=== PATIENT | female | born 1960 | race Caucasian/White ===

== ENCOUNTER → 2016-10-27 | Outpatient (CLI) | payer MEDICARE, BC ==
[2016-10-27 12:36] LABS: HCT 42.1 % (34.0-46.0); HGB 13.5 gm/dL (11.4-16.0); MCH 28.2 pg (25.0-35.0); MCHC 32.1 g/dL (31.0-37.0); MCV 87.9 fL (80.0-100.0); Mean Platelet Volume 6.8; RBC 4.79 m/uL (3.80-5.40); WBC 8.3 k/uL (3.8-10.6)
[2016-10-27 13:12] LABS: ALT 17 U/L (9-52); AST 19 U/L (14-36); Alkaline Phosphatase 72 U/L (38-126); Anion Gap 9 mmol/L; Blood Urea Nitrogen 11 mg/dL (7-17); Calcium 9.2 mg/dL (8.4-10.2); Carbon Dioxide 28 mmol/L (22-30); Chloride 104 mmol/L (98-107); Glucose 95 mg/dL (74-99); Non-African American GFR(MDRD) >60 (>60 ml/min/1.73 sqM); Potassium 4.1 mmol/L (3.5-5.1); Sodium 141 mmol/L (137-145); Total Bilirubin 0.5 mg/dL (0.2-1.3); Total Protein 6.9 g/dL (6.3-8.2)
[2016-10-27 15:17] LABS: Erythrocyte Sedimentation Rate 1 mm/hr (0-20)
== END | disposition home or self-care (01) ==
LOC: LABWHC1 11:56
PROVIDERS: ATTEND Internal Medicine Gastroenterology
DX: R53.83 Other fatigue (principal); R63.4 Abnormal weight loss
CPT/HCPCS: 36415; 80053; 84443; 85027; 85652

== ENCOUNTER → 2016-12-28 | Outpatient (CLI) | payer BC, MEDICARE ==
--- NOTE | 2016-12-29 09:41 | WWHP ---
DATE OF SERVICE: 12/28/16 CHIEF COMPLAINT: The patient is here for her routine gynecological exam. HISTORY OF PRESENT ILLNESS: This is a 56-year-old G0, with an LMP of 1989. She is status post ERVIN for invasive cervical cancer in 1989. She also underwent radiation and chemotherapy. She states it has been more than three years since her last pelvic exam and more than three years since her last mammogram as well. The patient is not sexually active. The patient is without gynecological complaints. PAST MEDICAL HISTORY: Small intestine bacterial overgrowth, chronic regional pain syndrome, previously known as reflux sympathetic dystrophy, osteopenia, status post two years of Prolia use, possible seasonal allergies and obstructive bowel disease. Medications: 1. Gabapentin 3 mg t.i.d. 2. Ibuprofen 400 mg daily. 3. Hydromorphone 4 mg q.i.d. prn 4. Zofran one q.i.d. prn 5. Brevio inhaler two puffs prn. 6. Dicyclomine prn. 7. Diazepam 10 mg b.i.d. prn. ALLERGIES: ERYTHROMYCIN WHICH CAUSED DIGESTIVE PROBLEMS AND NITROGLYCERINE WHICH CAUSED A RAPID HEART RATE. PAST SURGICAL: Cholecystectomy in 2004. Multiple shoulder surgeries between 2007 and 2009. Total abdominal hysterectomy in 1989. Feeding tube placement in 2014. 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 She has no other history of STDs. FAMILY HISTORIES: Father had [place]. Her grandparents also had heart disease. Maternal grandmother had breast cancer and mother had melanoma. SOCIAL HISTORY: She quit smoking at age 23. She denies tobacco and drug use. She is single and is not seeing anybody and is not sexually active. She is currently not working outside the home. REVIEW OF SYSTEMS: She lost about 70 pounds in 2014 when she was initially having her GI problems. She has gained about some weight back and it has been more stable. Now her weight can fluctuate by +/- ten pounds. Respiratory: Occasional allergy type symptoms. Cardiac: Occasional palpitations which has been worked up. GI: She has had some chronic constipation and chronic digestive tract problems as above. PHYSICAL EXAM: Blood pressure 111/74. Height 5 feet 4 inches, weight 128 pounds. Temperature 96.5. Pulse 64. This is a well developed, well nourished white female who is alert and oriented times three in no acute distress. HEENT : is within normal limits. Neck is supple without mass or thyromegaly. Chest and lungs clear to auscultation. Heart is regular rate and rhythm. Breasts without mass or discharge. Axillary exam is negative for adenopathy. Back negative for CVA tenderness. Abdomen is soft and nondistended but there is mild generalized tenderness throughout the abdomen. She states it has been this way since she has been having her GI problems. There is no rebound tenderness. There are no palpable abdominal masses. Pelvic exam, external genitalia reveals moderate atrophy without lesions. Vagina reveals moderate to severe atrophy without lesions. There is no evidence of prolapse. The vagina is somewhat narrowed and slightly shortened. The small Petersons speculum could be inserted with some discomfort and could only be opened minimally because of the severe atrophy. Bimanual exam is negative for mass. There is mild generalized tenderness upon doing the bimanual examination similar to that noted with her abdominal examination. Rectal exam is negative for mass or tenderness. Negative for occult blood. Extremities nontender. IMPRESSION: 1. A 56 year old menopausal female status post ERVIN in 1989 for invasive cervical cancer and she is status post radiation and chemotherapy at that time. 2. Moderate to severe genital atrophy secondary to menopause as well as radiation changes from her cervical cancer treatment. 3. Multiple medical problems including gastrointestinal problems. PLAN: 1. Pap smear of the vaginal cuff was performed. This may be somewhat limited because of the difficulty opening the speculum secondary to atrophy. 2. Self breast examination was discussed. 3. Mammogram will be done today. 4. The patient is interested in using Premarin vaginal cream for the atrophy. She does not believe she will be immediately sexually active. However, I do feel this may be helpful for future examinations since it was difficult inserting and opening the speculum. She will use Premarin vaginal cream 1 to 2 gm intravaginally two times weekly. 5. She will return in one year. HEAVEN
--- NOTE | 2016-12-29 09:52 | MM ---
Reason for exam: screening (asymptomatic). Last mammogram was performed 2 years and 3 months ago. History: Patient is postmenopausal, has history of other cancer at age 30, and is nulliparous. Family history of breast cancer in maternal grandmother at age 50. Took estrogen beginning at age 30. Physical Findings: A clinical breast exam by your physician is recommended on an annual basis and results should be correlated with mammographic findings. MG 3D Screening Mammo W/Cad Bilateral CC and MLO view(s) were taken. Prior study comparison: September 24, 2014, bilateral MG screening mammo w CAD. The breast tissue is heterogeneously dense. This may lower the sensitivity of mammography. There is no discrete abnormality. ASSESSMENT: Negative, BI-RAD 1 RECOMMENDATION: Routine screening mammogram of both breasts in 1 year.
== END | disposition home or self-care (01) ==
LOC: WWCWWP 10:20
PROVIDERS: ATTEND Obstetrics & Gynecology
DX: Z12.31 Encounter for screening mammogram for malignant neoplasm of breast (principal)
CPT/HCPCS: 77063; G0202

== ENCOUNTER → 2017-01-09 | Outpatient (CLI) | payer MEDICARE ==
[2017-01-09 09:58] LABS: Basophils # (A) 0.1 k/uL (0-0.2); Basophils % (A) 1 %; CH 28.9; CHCM 32.7; Eosinophils # (A) 0.3 k/uL (0-0.7); Eosinophils % (A) 4 %; HCT 39.5 % (34.0-46.0); HDW 2.38; HGB 12.6 gm/dL (11.4-16.0); Luc # (Auto) 0.15; Luc % (Auto) 2; Lymphocytes # (A) 1.6 k/uL (1.0-4.8); Lymphocytes % (A) 25 %; MCH 28.5 pg (25.0-35.0); MCV 88.9 fL (80.0-100.0); Mean Platelet Volume 7.7; Monocytes # (A) 0.4 k/uL (0-1.0); Monocytes % (A) 6 %; Neutrophils # (A) 3.9 k/uL (1.3-7.7); Neutrophils % (A) 62 %; RBC 4.44 m/uL (3.80-5.40); RDW 14.1 % (11.5-15.5); WBC 6.4 k/uL (3.8-10.6); WBC (Perox) 6.67
[2017-01-09 10:25] LABS: ALT 28 U/L (9-52); AST 18 U/L (14-36); Alkaline Phosphatase 65 U/L (38-126); Amylase 92 U/L (30-110); Anion Gap 10 mmol/L; Blood Urea Nitrogen 12 mg/dL (7-17); Calcium 9.3 mg/dL (8.4-10.2); Carbon Dioxide 28 mmol/L (22-30); Chloride 104 mmol/L (98-107); Cholesterol 207 mg/dL (<200); Creatine Kinase 197 U/L (30-135); Glucose 89 mg/dL (74-99); HDL Cholesterol 72 mg/dL (40-60); Non-African American GFR(MDRD) >60 (>60 ml/min/1.73 sqM); Potassium 4.6 mmol/L (3.5-5.1); Sodium 142 mmol/L (137-145); Total Bilirubin 0.3 mg/dL (0.2-1.3); Total Protein 6.3 g/dL (6.3-8.2); Triglycerides 64 mg/dL (<150)
[2017-01-09 11:28] LABS: Vitamin B12 449 pg/mL (239-931)
[2017-01-09 12:03] LABS: Erythrocyte Sedimentation Rate 4 mm/hr (0-20)
[2017-01-09 17:53] LABS: ANA w/Reflex to Titer NEGATIVE (NEGATIVE)
[2017-01-10 10:19] LABS: Lyme IgG/IgM Interp NEGATIVE (NEGATIVE)
== END | disposition home or self-care (01) ==
LOC: LABWHC1 09:20
PROVIDERS: ATTEND Family Medicine
DX: R20.2 Paresthesia of skin (principal); R10.9 Unspecified abdominal pain; K90.9 Intestinal malabsorption, unspecified; E78.5 Hyperlipidemia, unspecified; E53.8 Deficiency of other specified B group vitamins
CPT/HCPCS: 36415; 80053; 80061; 82150; 82306; 82550; 82607; 82728; 82746; 83690; 84425; 85025; 85652; 86038; 86618

== ENCOUNTER → 2017-01-10 | Outpatient (CLI) | payer MEDICARE ==
--- NOTE | 2017-01-10 14:04 | US ---
EXAMINATION TYPE: US carotid duplex BILAT DATE OF EXAM: 01/10/2017 COMPARISON: NONE CLINICAL HISTORY: R20.2 Paresthesia of skin. numbness and tingling left side arm and face. EXAM MEASUREMENTS: RIGHT: Peak Systolic Velocity (PSV) cm/sec ----- Right CCA: 89.7 ----- Right ICA: 75.4 ----- Right ECA: 77.6 ICA/CCA ratio: 0.8 RIGHT: End Diastole cm/sec ----- Right CCA: 29.2 ----- Right ICA: 34.7 ----- Right ECA: 14.9 LEFT: Peak Systolic Velocity (PSV) cm/sec ----- Left CCA: 94.7 ----- Left ICA: 88.1 ----- Left ECA: 89.4 ICA/CCA ratio: 0.9 LEFT: End Diastole cm/sec ----- Left CCA: 31.2 ----- Left ICA: 32.5 ----- Left ECA: 16.7 VERTEBRALS (direction of flow): Right Vertebral: Antegrade Left Vertebral: Antegrade No significant stenosis seen, no elevated velocities, plaque noted left bulb. Grayscale images show no significant focal plaque at right carotid bulb. There is moderate eccentric shadowing plaque at left carotid bulb. Velocity measurements and ratios remain within normal limits i n visualized portion of both internal carotid arteries. IMPRESSION: Moderate atherosclerotic change left carotid bulb without hemodynamically significant st enosis seen in either internal carotid artery.
== END | disposition home or self-care (01) ==
LOC: RADUSWWP 12:06
PROVIDERS: ATTEND Family Medicine
DX: I65.22 Occlusion and stenosis of left carotid artery (principal); R20.2 Paresthesia of skin
CPT/HCPCS: 93880

== ENCOUNTER → 2017-03-15 | Outpatient (CLI) | payer MEDICARE ==
--- NOTE | 2017-03-15 08:54 | US ---
EXAMINATION TYPE: US pelvic complete DATE OF EXAM: 03/15/2017 COMPARISON: CT 2014 CLINICAL HISTORY: 56-year-old female R10.9 Abdominal Pain. Hysterectomy 1989 TECHNIQUE: Multiple transabdominal sonographic images of the pelvis are obtained. FINDINGS: Date of LMP: 1989 Uterus: Surgically absent Right Ovary: 1.4 x 1.0 x 0.9 cm for volume of 0.6 mL. Left Ovary: 2.0 x 1.4 x 1.6 cm for a volume of 2.3 mL. No evident adnexal abnormality or cul-de-sac free fluid. IMPRESSION: Status post hysterectomy. Both ovaries are small consistent with postmenopausal status. No pelvic parul e fluid.
--- NOTE | 2017-03-15 08:57 | US ---
EXAMINATION TYPE: US abdomen complete DATE OF EXAM: 03/15/2017 COMPARISON: None CLINICAL HISTORY: 56-year-old female R10.9 Abdominal Pain. Cholecystectomy. FINDINGS: CANVAS BASTER NOTES: Difficult exam due to overlying bowel gas and patient pain Liver Length: 18.0 cm CBD: 1.0 cm Spleen: 9.4 cm Right Kidney: 9.9 x 3.5 x 4.0 cm Left Kidney: 9.7 x 4.7 x 4.8 cm Pancreas: Tail obscured by overlying bowel gas Liver: Mildly enlarged but with overall normal homogeneous echotexture. No focal lesion seen. Gallbladder: Surgically absent CBD: Dilated Spleen: wnl Right Kidney: No hydronephrosis. Left Kidney: No hydronephrosis; difficult visualization due to overlying bowel gas Upper IVC: wnl Abd Aorta: Some atherosclerotic changes noted in mid portion, otherwise wnl IMPRESSION: 1. Mild hepatomegaly. 2. Status post cholecystectomy. Dilatation of the bile duct at 1 cm may be secondary to postcholecyst ectomy status. Correlate with alkaline phosphatase and bilirubin levels to exclude biliary obstructio n.
== END | disposition home or self-care (01) ==
LOC: RADUSWWP 07:48
PROVIDERS: ATTEND Family Medicine
DX: R16.0 Hepatomegaly, not elsewhere classified (principal); K83.8 Other specified diseases of biliary tract; Z90.49 Acquired absence of other specified parts of digestive tract; Z90.710 Acquired absence of both cervix and uterus
CPT/HCPCS: 76700; 76856

== ENCOUNTER → 2017-06-13 | Outpatient (CLI) | payer MEDICARE, OTHER ==
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
== END | disposition home or self-care (01) ==
LOC: RADMRIMAIN 15:11
PROVIDERS: ATTEND Family Medicine
DX: R20.0 Anesthesia of skin (principal)
CPT/HCPCS: 70551

== ENCOUNTER → 2017-07-07 | Outpatient (CLI) | payer OTHER, MEDICARE ==
--- NOTE | 2017-07-07 09:41 | MR ---
EXAMINATION TYPE: MR lumbar spine wo/w con DATE OF EXAM: 07/07/2017 COMPARISON: Prior lumbar MRI 07/05/2013 CT abdomen pelvis 10/11/2017 HISTORY: Spondylosis with myelopathy, lumbar region TECHNIQUE: Multiplanar, multisequence images of the lumbar spine were acquired utilizing [address] gadolinium contrast. L1-L2: Normal disc appearance without desiccation. No herniation, protrusion or disc bulging. No ca nal stenosis is present. Foramina are patent bilaterally. L2-L3: Normal disc appearance without desiccation. No herniation, protrusion or disc bulging. No ca nal stenosis is present. Schmorl's node present at the superior endplate of L3. Foramina are patent b ilaterally. L3-L4: Normal disc appearance without desiccation. No herniation, protrusion or disc bulging. No ca nal stenosis is present. Foramina are patent bilaterally. L4-L5: Normal disc appearance without desiccation. No herniation, protrusion or disc bulging. No ca nal stenosis is present. Facet arthropathy changes with hypertrophy of the ligamentum flavum encroach es mildly on the lateral recesses as on prior Foramina are patent bilaterally. L5-S1: Normal disc appearance without desiccation. No herniation, protrusion or disc bulging. No ca nal stenosis is present. Mild facet arthropathy changes are present Foramina are patent bilaterally. Lumbar segments are intact. No paraspinal masses are identified. Conus medullaris has a normal appe arance. There is multilevel spondylosis. Normal endplate discogenic marrow signal changes are again n oted. Loss of disc height and signal is greatest at L2-3, L1-2 similar to prior exam. Prominence of t he common bile duct is again noted incidentally. This is likely due to postcholecystectomy change and is stable. There is mild spinal curvature. No abnormal enhancement following contrast administration . IMPRESSION: Stable exam. Mild facet arthropathy change. Additional findings above.
== END | disposition home or self-care (01) ==
LOC: RADMRIMAIN 07:52
PROVIDERS: ATTEND Family Medicine
DX: M47.16 Other spondylosis with myelopathy, lumbar region (principal); M46.97 Unspecified inflammatory spondylopathy, lumbosacral region
CPT/HCPCS: 72158; A9581

== ENCOUNTER → 2017-07-31 | Outpatient (CLI) | payer MEDICARE ==
[2017-07-31 11:02] LABS: Basophils # (A) 0.1 k/uL (0-0.2); Basophils % (A) 1 %; Eosinophils # (A) 0.3 k/uL (0-0.7); Eosinophils % (A) 4 %; HCT 39.2 % (34.0-46.0); HGB 12.3 gm/dL (11.4-16.0); Lymphocytes # (A) 1.9 k/uL (1.0-4.8); Lymphocytes % (A) 27 %; MCHC 31.5 g/dL (31.0-37.0); Mean Platelet Volume 6.7; Monocytes # (A) 0.5 k/uL (0-1.0); Monocytes % (A) 7 %; Neutrophils # (A) 4.1 k/uL (1.3-7.7); Neutrophils % (A) 59 %; Platelet Count 281 k/uL (150-450); RDW 12.6 % (11.5-15.5)
[2017-07-31 11:18] LABS: ALT 15 U/L (9-52); AST 17 U/L (14-36); Albumin 4.2 g/dL (3.5-5.0); Alkaline Phosphatase 67 U/L (38-126); Anion Gap 7 mmol/L; Blood Urea Nitrogen 19 mg/dL (7-17); Calcium 9.5 mg/dL (8.4-10.2); Carbon Dioxide 32 mmol/L (22-30); Chloride 101 mmol/L (98-107); Glucose 95 mg/dL (74-99); Potassium 4.3 mmol/L (3.5-5.1); Sodium 140 mmol/L (137-145); Total Bilirubin 0.3 mg/dL (0.2-1.3); Total Protein 6.8 g/dL (6.3-8.2)
== END | disposition home or self-care (01) ==
LOC: LABWHC1 10:20
PROVIDERS: ATTEND Internal Medicine Gastroenterology
DX: R53.83 Other fatigue (principal)
CPT/HCPCS: 36415; 80053; 85025

== ENCOUNTER → 2017-12-28 | Outpatient (CLI) | payer MEDICARE ==
[2017-12-28 10:55] LABS: Basophils # (A) 0.1 k/uL (0-0.2); Basophils % (A) 1 %; Eosinophils # (A) 0.2 k/uL (0-0.7); Eosinophils % (A) 2 %; HGB 12.7 gm/dL (11.4-16.0); Lymphocytes # (A) 1.8 k/uL (1.0-4.8); Lymphocytes % (A) 22 %; MCH 28.4 pg (25.0-35.0); MCHC 32.6 g/dL (31.0-37.0); MCV 87.2 fL (80.0-100.0); Mean Platelet Volume 6.7; Monocytes # (A) 0.5 k/uL (0-1.0); Monocytes % (A) 6 %; Neutrophils # (A) 5.3 k/uL (1.3-7.7); Neutrophils % (A) 66 %; Platelet Count 251 k/uL (150-450); RBC 4.47 m/uL (3.80-5.40); RDW 13.5 % (11.5-15.5)
[2017-12-28 10:57] LABS: INR 1.1 (<1.2); Prothrombin Time 10.7 sec (9.0-12.0)
[2017-12-28 18:48] LABS: Iron Saturation 19.64 (12.00-45.00)
== END | disposition home or self-care (01) ==
LOC: LABWHC1 10:31
PROVIDERS: ATTEND Physician Assistant
DX: R58 Hemorrhage, not elsewhere classified (principal)
CPT/HCPCS: 36415; 82728; 83540; 83550; 85025; 85610

== ENCOUNTER 2018-11-12 22:22 | Emergency (ER) | payer MEDICARE ==
[2018-11-12 22:30] VITALS: RESP 18
[2018-11-12 23:07] LABS: Basophils # (A) 0.1 k/uL (0-0.2); Basophils % (A) 1 %; Eosinophils # (A) 0.2 k/uL (0-0.7); Eosinophils % (A) 4 %; HGB 11.7 gm/dL (11.4-16.0); Lymphocytes # (A) 2.6 k/uL (1.0-4.8); Lymphocytes % (A) 39 %; MCH 28.2 pg (25.0-35.0); MCHC 33.3 g/dL (31.0-37.0); MCV 84.6 fL (80.0-100.0); Mean Platelet Volume 7.2; Monocytes # (A) 0.4 k/uL (0-1.0); Monocytes % (A) 6 %; Neutrophils # (A) 3.2 k/uL (1.3-7.7); Neutrophils % (A) 48 %; Platelet Count 243 k/uL (150-450); RBC 4.14 m/uL (3.80-5.40); RDW 13.9 % (11.5-15.5); WBC 6.7 k/uL (3.8-10.6)
[2018-11-12 23:17] LABS: INR 1.1 (<1.2); Partial Thromboplastin Time 23.8 sec (22.0-30.0); Prothrombin Time 11.7 sec (9.0-12.0)
[2018-11-12 23:23] LABS: Calcium 9.3 mg/dL (8.4-10.2); Magnesium 2.2 mg/dL (1.6-2.3); Potassium 3.9 mmol/L (3.5-5.1); Total Bilirubin 0.4 mg/dL (0.2-1.3); Total Protein 6.2 g/dL (6.3-8.2)
--- NOTE | 2018-11-12 23:23 | XR ---
EXAM: XR Left Ankle Complete, 3 or More Views CLINICAL HISTORY: Pain TECHNIQUE: Frontal, lateral and oblique views of the left ankle. COMPARISON: No relevant prior studies available. FINDINGS: Bones/joints: No acute fracture or malalignment. Plantar calcaneal osteophyte. Soft tissues: Unremarkable. IMPRESSION: No acute osseous abnormality.
--- NOTE | 2018-11-12 23:24 | XR ---
EXAM: XR Chest, 2 Views CLINICAL HISTORY: Chest Pain TECHNIQUE: Frontal and lateral views of the chest. COMPARISON: No relevant prior studies available. FINDINGS: Lungs: Unremarkable. No consolidation. Pleural space: Unremarkable. No pneumothorax. Heart: Unremarkable. No cardiomegaly. Mediastinum: Unremarkable. Bones/joints: No acute osseous abnormality. IMPRESSION: No acute cardiopulmonary process.
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
[2018-11-13 03:34] VITALS: BP 106/72; PULSE 78; TEMP 98.3
== END 2018-11-13 03:34 | disposition home or self-care (01) ==
LOC: EC 22:22 → SUPCPDRO 22:22 → EC 11-13 03:34
DX: R07.9 Chest pain, unspecified (principal); R21 Rash and other nonspecific skin eruption; M25.572 Pain in left ankle and joints of left foot; I10 Essential (primary) hypertension; F17.200 Nicotine dependence, unspecified, uncomplicated; Z88.1 Allergy status to other antibiotic agents; Z88.8 Allergy status to other drugs, medicaments and biological substances; Z91.013 Allergy to seafood; Z79.899 Other long term (current) drug therapy; Z85.42 Personal history of malignant neoplasm of other parts of uterus; Z90.710 Acquired absence of both cervix and uterus
CPT/HCPCS: 36415; 71046; 80053; 83735; 84484; 85025; 85610; 85730; 93005; 99285

== ENCOUNTER → 2018-12-19 | Outpatient (CLI) | payer MEDICARE | END | disposition home or self-care (01) | LOC: LABWHC1 12:00 | PROVIDERS: ATTEND Internal Medicine Infectious Disease | DX: R23.3 Spontaneous ecchymoses (principal); R21 Rash and other nonspecific skin eruption | CPT/HCPCS: 87328; 87329 ==

== ENCOUNTER → 2019-05-08 | Outpatient (CLI) | payer MEDICARE ==
--- NOTE | 2019-05-09 09:59 | MM ---
Reason for exam: additional evaluation requested from prior study. Last mammogram was performed 2 years and 4 months ago. History: Patient is postmenopausal, has history of other cancer at age 30, and is nulliparous. Family history of breast cancer in maternal grandmother at age 50. Took estrogen beginning at age 30. Physical Findings: Nurse did not find any significant physical abnormalities on exam. MG Diagnostic Mammo w CAD [facility] Bilateral CC and MLO view(s) were taken. Prior study comparison: December 28, 2016, bilateral MG 3d screening mammo w/cad. September 24, 2014, bilateral MG screening mammo w CAD. The breast tissue is heterogeneously dense. This may lower the sensitivity of mammography. No suspicious abnormality. No significant new findings when compared with previous films. These results were verbally communicated with the patient and result sheet given to the patient on 05/08/19. ASSESSMENT: Negative, BI-RAD 1 RECOMMENDATION: Routine screening mammogram of both breasts in 1 year.
== END | disposition home or self-care (01) ==
LOC: RADMAMWWP 14:26
PROVIDERS: ATTEND Family Medicine
DX: N60.11 Diffuse cystic mastopathy of right breast (principal); N60.12 Diffuse cystic mastopathy of left breast
CPT/HCPCS: 77066

== ENCOUNTER 2019-05-15 11:29 | Outpatient (CLI) | payer MEDICARE | END 2019-05-16 07:18 | disposition home or self-care (01) | LOC: LABWHC1 11:29 | PROVIDERS: ATTEND Family Medicine | DX: Z53.9 Procedure and treatment not carried out, unspecified reason (principal) ==

== ENCOUNTER → 2019-06-21 | Outpatient (CLI) | payer MEDICARE ==
[2019-06-21 13:24] LABS: Basophils % (A) 1 %; Eosinophils # (A) 0.1 k/uL (0-0.7); Eosinophils % (A) 1 %; HCT 38.4 % (34.0-46.0); HGB 12.3 gm/dL (11.4-16.0); Lymphocytes # (A) 1.4 k/uL (1.0-4.8); Lymphocytes % (A) 20 %; MCH 28.3 pg (25.0-35.0); MCHC 31.9 g/dL (31.0-37.0); MCV 88.7 fL (80.0-100.0); Mean Platelet Volume 7.6; Monocytes # (A) 0.3 k/uL (0-1.0); Monocytes % (A) 3 %; Neutrophils # (A) 5.3 k/uL (1.3-7.7); Neutrophils % (A) 74 %; Platelet Count 292 k/uL (150-450); RBC 4.33 m/uL (3.80-5.40); WBC 7.2 k/uL (3.8-10.6)
[2019-06-21 20:36] LABS: African American GFR (CKD) 93.5 (60.0-200.0); Albumin 4.7 g/dL (3.80-4.90); Albumin/Globulin Ratio 2.94 (1.60-3.17); Anion Gap 8.7 mmol/L (4.00-12.00); BUN/Creat Ratio 21.25 Ratio (12.00-20.00); Calcium 9.5 mg/dL (8.7-10.3); Carbon Dioxide 27.3 mmol/L (21.6-31.8); Chol/HDL Ratio 2.18; Globulin 1.6 g/dL (1.6-3.3); Non-African American GFR(CKD) 80.7 (60.0-200.0); Potassium 4.3 mmol/L (3.5-5.5); Total Bilirubin 0.4 mg/dL (0.2-1.2); Total Protein 6.3 g/dL (6.2-8.2)
[2019-06-21 20:37] LABS: T4, Free (Free Thyroxine) 1.3 ng/dL (0.80-1.80)
[2019-06-21 20:45] LABS: Ferritin 40.2 ng/mL (10.0-291.0)
[2019-06-21 21:58] LABS: Folate, Serum 17.5 ng/mL
== END | disposition home or self-care (01) ==
LOC: LABWHC1 11:52
PROVIDERS: ATTEND Family Medicine
DX: Z13.220 Encounter for screening for lipoid disorders (principal)
CPT/HCPCS: 36415; 80053; 80061; 82150; 82306; 82550; 82607; 82728; 82746; 83516; 83690; 84439; 84443; 85025

== ENCOUNTER 2019-06-27 10:21 | Emergency (ER) | payer MEDICARE ==
[2019-06-27 10:27] VITALS: BP 169/101; PULSE 67; RESP 19; TEMP 97.9
[2019-06-27] MEDS ORDERED: SODIUM CHLORIDE 0.9% 1,000 ML IV STA (11:12)
--- NOTE | 2019-06-27 11:15 | ED ---
General Adult HPI - General Chief complaint: Abdominal Pain Stated complaint: rash, abd pain Time Seen by Provider: 06/27/19 10:59 Source: patient, RN notes reviewed, old records reviewed Mode of arrival: ambulatory Limitations: no limitations - History of Present Illness Initial comments: 58-year-old female patient past history significant for Regional pain syndrome, reported uterine cancer presents ED for chief complaint of concern for possible parasite. Patient reports that she was in [place] the th through the . Reports that she was bitten by multiple bugs while she was there. Reports that when she got back she had the bug bites evaluated by her r and d lab technician who recommended hydrocortisone cream. Patient reports that for the last week she has been having consistent diarrhea, reports that she is losing weight. Reports some abdominal cramping. Patient reports that last night when she had a bowel movement she noticed that there were small white bugs with wings reportedly. Denies any other complaints at this time. Systemic: Pt denies fatigue, fever/chills, rash. Pt denies weakness, night sweats, weight loss. Neuro: Pt denies headache, visual disturbances, syncope or pre-syncope. HEENT: Pt denies ocular discharge or irritation, otalgia, rhinorrhea, pharyngitis or notable lymphadenopathy. Cardiopulmonary: Pt denies chest pain, SOB, heart palpitations, dyspnea on exertion. Abdominal: Denies nausea and emesis. : Pt denies dysuria, burning w/ urination, frequency/urgency. Denies new onset urinary or bowel incontinence. MSK: Pt denies myalgia, loss of strength or function in extremities. Neuro: Pt denies new onset weakness, paresthesias. - Related Data Home Medications Medication Instructions Recorded Confirmed Gabapentin [Neurontin] 300 mg PO HS 08/26/14 01/08/15 HYDROmorphone [Dilaudid] 2 - 4 mg PO Q8H PRN 08/26/14 01/08/15 Albuterol Sulfate [Proair Hfa] 1 - 2 puff INHALATION QID PRN 01/08/15 01/08/15 Amoxic-Pot Clav 875-125Mg 1 each PO Q12HR 01/08/15 01/08/15 [Augmentin Xr 875-125] Cholecalciferol [Vitamin D3] 4,000 unit PO DAILY 01/08/15 01/08/15 Dicyclomine HCl 10 mg PO Q6HR PRN 01/08/15 01/08/15 Ibuprofen 400 mg PO Q4HR PRN 01/08/15 01/08/15 Nebivolol HCl [Bystolic] 10 mg PO DAILY 01/08/15 01/08/15 Nortriptyline [Pamelor] 50 mg PO HS 01/08/15 01/08/15 Omeprazole 20 mg PO DAILY 01/08/15 01/08/15 Ondansetron HCl 4 mg PO Q4-6H PRN 01/08/15 01/08/15 Rifaximin [Xifaxan] 550 mg PO BID 01/08/15 01/08/15 Sucralfate 1 gm PO TID 01/08/15 01/08/15 Previous Rx's Medication Instructions Recorded Dicyclomine HCl [Bentyl] 20 mg PO QID PRN #20 tab 01/08/15 Ondansetron [Zofran ODT] 4 mg PO Q8HR #20 tab 01/08/15 Allergies Allergy/AdvReac Type Severity Reaction Status Date / Time nitroglycerin Allergy Severe "HEART Verified 11/12/18 22:30 STOPPED" erythromycin base Allergy Abdominal Verified 11/12/18 22:30 Pain shellfish derived [Shellfish] Allergy Anaphylaxis Verified 11/13/18 00:21 Review of Systems ROS Statement: Those systems with pertinent positive or pertinent negative responses have been documented in the HPI. ROS Other: All systems not noted in ROS Statement are negative. Past Medical History Past Medical History: Atrial Fibrillation, Atrial Flutter, Cancer, Hypertension Additional Past Medical History / Comment(s): IRREGULAR HEART BEAT,SEVERE CONSTIPATION, WEIGHT LOSS- nasal tube,COMPLEX REGIONAL PAIN SYNDROME, UTERINE CANCER, RSD, whiplash, vestibular disease, digestive disorder, History of Any Multi-Drug Resistant Organisms: None Reported Past Surgical History: Cholecystectomy, Hysterectomy Additional Past Surgical History / Comment(s): RIGHT SHOULDER, NG tube, Past Anesthesia/Blood Transfusion Reactions: No Reported Reaction Past Psychological History: No Psychological Hx Reported Smoking Status: Current some day smoker Past Alcohol Use History: None Reported Past Drug Use History: None Reported General Exam - General Exam Comments Initial Comments: Constitutional: NAD, AOX3, Pt has pleasant affect. HEENT: NC/AT, trachea midline, neck supple, no lymphadenopathy. Posterior pharyn x non erythematous, without exudates. External ears appear normal, without discharge. Mucous membranes moist. Eyes PERRLA, EOM intact. There is no scleral icterus. No pallor noted. Cardiopulmonary: RRR, no murmurs, rubs or gallops, no JVD noted. Lungs CTAB in anterior and posterior mcwilliams. No peripheral edema. Abdominal exam: Abdomen soft and non-distended. Abdomen tender to palpation periumbilical region. . Bowel sounds active in LLQ. No hepatosplenomegaly. No ecchymosis Neuro: CN II-XII grossly intact. No nuchal rigidity. No raccon eyes, no gonzalez sign, no hemotympanum. No cervical spinal tenderness. MSK: No posterior calf tenderness bilaterally, homans sign negative bilaterally. Posterior tibialis and radial pulse +2 bilaterally. Sensation intact in upper and lower extremities. Full active ROM in upper and lower extremities, 5/5 stregnth. Limitations: no limitations Course Vital Signs 06/27/19 10:24 Temperature 97.9 F Pulse Rate 67 Respiratory 19 Rate Blood Pressure 169/101 O2 Sat by Pulse 100 Oximetry Medical Decision Making - Medical Decision Making 58-year-old female patient past history significant for Regional pain syndrome, reported uterine cancer presents ED for chief complaint of concern for possible parasite. Patient reports that she was in [place] the through the . Reports that she was bitten by multiple bugs while she was there. Reports that when she got back she had the bug bites evaluated by her r and d lab technician who recommended hydrocortisone cream. Patient reports that for the last week she has been having consistent diarrhea, reports that she is losing weight. Reports some abdominal cramping. Patient reports that last night when she had a bowel movement she noticed that there were small white bugs with wings reportedly. Denies any other complaints at this time. Patient vital signs are stable, afebrile. Physical exam didn't display periumbilical, generalized tenderness in abdomen. Laboratory investigations were obtained and her overall noncompressive. UA displayed +1 glucose. CBC displayed postop changes. Patient seemed to have continued abdominal pain which had worsened, CAT scan with contrast was ordered. This did not display any acute process. Shared decision making patient like to be treated with a antiparasitic medication. Patient administered 1 dose of ivermectin. Patient likely experiencing a gastroenteritis syndrome. Patient was unable to provide stool culture. Patient will be discharged to follow up with primary care provider tomorrow and return to ER if condition worsens. Case discussed with Dr. Mariscal. - Lab Data Result diagrams: 06/27/19 11:30 06/27/19 11:30 Lab Results 06/27/19 06/27/19 06/27/19 Range/Units 11:30 11:30 11:30 WBC 5.5 (3.8-10.6) k/uL RBC 4.24 (3.80-5.40) m/uL Hgb 12.5 (11.4-16.0) gm/dL Hct 37.0 (34.0-46.0) % MCV 87.3 (80.0-100.0) fL MCH 29.4 (25.0-35.0) pg MCHC 33.7 (31.0-37.0) g/dL RDW 12.7 (11.5-15.5) % Plt Count 302 (150-450) k/uL Neutrophils % 68 % Lymphocytes % 22 % Monocytes % 5 % Eosinophils % 2 % Basophils % 1 % Neutrophils # 3.8 (1.3-7.7) k/uL Lymphocytes # 1.2 (1.0-4.8) k/uL Monocytes # 0.3 (0-1.0) k/uL Eosinophils # 0.1 (0-0.7) k/uL Basophils # 0.0 (0-0.2) k/uL Sodium 140 (137-145) mmol/L Potassium 4.0 (3.5-5.1) mmol/L Chloride 105 (98-107) mmol/L Carbon Dioxide 28 (22-30) mmol/L Anion Gap 7 mmol/L BUN 21 H (7-17) mg/dL Creatinine 0.77 (0.52-1.04) mg/dL Est GFR (CKD-EPI)AfAm >90 (>60 ml/min/1.73 sqM) Est GFR (CKD-EPI)NonAf 85 (>60 ml/min/1.73 sqM) Glucose 107 H (74-99) mg/dL Plasma Lactic Acid Gregg 0.7 (0.7-2.0) mmol/L Calcium 9.5 (8.4-10.2) mg/dL Total Bilirubin 0.5 (0.2-1.3) mg/dL AST 22 (14-36) U/L ALT 12 (4-34) U/L Alkaline Phosphatase 59 (38-126) U/L Total Protein 7.2 (6.3-8.2) g/dL Albumin 4.7 (3.5-5.0) g/dL Lipase 106 (23-300) U/L Urine Color Urine Appearance (Clear) Urine pH (5.0-8.0) Ur Specific [place] (1.001-1.035) Urine Protein (Negative) Urine Glucose (UA) (Negative) Urine Ketones (Negative) Urine Blood (Negative) Urine Nitrite (Negative) Urine Bilirubin (Negative) Urine Urobilinogen (<2.0) mg/dL Ur Leukocyte Esterase (Negative) 06/27/19 Range/Units 13:38 WBC (3.8-10.6) k/uL RBC (3.80-5.40) m/uL Hgb (11.4-16.0) gm/dL Hct (34.0-46.0) % MCV (80.0-100.0) fL MCH (25.0-35.0) pg MCHC (31.0-37.0) g/dL RDW (11.5-15.5) % Plt Count (150-450) k/uL Neutrophils % % Lymphocytes % % Monocytes % % Eosinophils % % Basophils % % Neutrophils # (1.3-7.7) k/uL Lymphocytes # (1.0-4.8) k/uL Monocytes # (0-1.0) k/uL Eosinophils # (0-0.7) k/uL Basophils # (0-0.2) k/uL Sodium (137-145) mmol/L Potassium (3.5-5.1) mmol/L Chloride (98-107) mmol/L Carbon Dioxide (22-30) mmol/L Anion Gap mmol/L BUN (7-17) mg/dL Creatinine (0.52-1.04) mg/dL Est GFR (CKD-EPI)AfAm (>60 ml/min/1.73 sqM) Est GFR (CKD-EPI)NonAf (>60 ml/min/1.73 sqM) Glucose (74-99) mg/dL Plasma Lactic Acid Gregg (0.7-2.0) mmol/L Calcium (8.4-10.2) mg/dL Total Bilirubin (0.2-1.3) mg/dL AST (14-36) U/L ALT (4-34) U/L Alkaline Phosphatase (38-126) U/L Total Protein (6.3-8.2) g/dL Albumin (3.5-5.0) g/dL Lipase (23-300) U/L Urine Color Yellow Urine Appearance Clear (Clear) Urine pH 5.5 (5.0-8.0) Ur Specific [place] 1.019 (1.001-1.035) Urine Protein Negative (Negative) Urine Glucose (UA) Negative (Negative) Urine Ketones 1+ H (Negative) Urine Blood Negative (Negative) Urine Nitrite Negative (Negative) Urine Bilirubin Negative (Negative) Urine Urobilinogen <2.0 (<2.0) mg/dL Ur Leukocyte Esterase Negative (Negative) Disposition Clinical Impression: Parasites in stool, Gastroenteritis Disposition: HOME SELF-CARE Condition: Stable Instructions (If sedation given, give patient instructions): Gastroenteritis (ED) Additional Instructions: Follow-up with primary care provider tomorrow. Have liver function tests rechecked in approximately one week. Return immediately to ER if condition worsens in any way. Continue to drink lots of fluids. Is patient prescribed a controlled substance at d/c from ED?: No Referrals: Jim Torres MD [Primary Care Provider] - 1-2 days
[2019-06-27 11:46] LABS: Basophils % (A) 1 %; Eosinophils # (A) 0.1 k/uL (0-0.7); Eosinophils % (A) 2 %; HGB 12.5 gm/dL (11.4-16.0); Lymphocytes # (A) 1.2 k/uL (1.0-4.8); Lymphocytes % (A) 22 %; MCH 29.4 pg (25.0-35.0); MCHC 33.7 g/dL (31.0-37.0); MCV 87.3 fL (80.0-100.0); Mean Platelet Volume 7.8; Monocytes # (A) 0.3 k/uL (0-1.0); Monocytes % (A) 5 %; Neutrophils # (A) 3.8 k/uL (1.3-7.7); Neutrophils % (A) 68 %; Platelet Count 302 k/uL (150-450); RBC 4.24 m/uL (3.80-5.40); RDW 12.7 % (11.5-15.5); WBC 5.5 k/uL (3.8-10.6)
[2019-06-27 11:56] LABS: ALT 12 U/L (4-34); AST 22 U/L (14-36); African American GFR (CKD) >90 (>60 ml/min/1.73 sqM); Albumin 4.7 g/dL (3.5-5.0); Alkaline Phosphatase 59 U/L (38-126); Anion Gap 7 mmol/L; Blood Urea Nitrogen 21 mg/dL (7-17); Calcium 9.5 mg/dL (8.4-10.2); Carbon Dioxide 28 mmol/L (22-30); Chloride 105 mmol/L (98-107); Glucose 107 mg/dL (74-99); Non-African American GFR(CKD) 85 (>60 ml/min/1.73 sqM); Sodium 140 mmol/L (137-145); Total Bilirubin 0.5 mg/dL (0.2-1.3); Total Protein 7.2 g/dL (6.3-8.2)
--- NOTE | 2019-06-27 12:21 | XR ---
KUB HISTORY: Abdominal pain left upper quadrant Frontal KUB submitted and correlated prior KUB 01/08/2015 Surgical clips present right upper quadrant. Dobbhoff tube has been removed. Lung bases are clear. Th ere is no evident bowel obstruction or pneumoperitoneum. Bone mineralization is stable. IMPRESSION: Postop changes.
[2019-06-27] MEDS ORDERED: KETOROLAC 30 MG/ML 1 ML VIAL IVP STA (12:53)
[2019-06-27] MEDS ORDERED: SODIUM CHLORIDE 0.9% 500 ML 500 ML IV STA (12:54)
[2019-06-27 13:52] LABS: Appearance,Urine Clear (Clear); Bilirubin,Urine Negative (Negative); Blood,Urine Negative (Negative); Color,Urine Yellow; Glucose,Urine (UA) Negative (Negative); Ketones,Urine 1+ (Negative); Leukocyte Esterase,Urine Negative (Negative); Nitrite,Urine Negative (Negative); PH, Urine 5.5 (5.0-8.0); Protein,Urine Negative (Negative); Specific Gravity,Urine 1.019 (1.001-1.035); Urobilinogen,Urine <2.0 mg/dL (<2.0)
--- NOTE | 2019-06-27 14:46 | CT ---
EXAMINATION TYPE: CT abdomen pelvis w con DATE OF EXAM: 06/27/2019 COMPARISON: 10/11/2014 HISTORY: Left sided pain with N/V/D. CT DLP: 702.6 mGycm CONTRAST: CT scan of the abdomen and pelvis is performed without Oral Contrast and with IV Contrast, patient in jected with 100 mL of Isovue 300. FINDINGS: LUNG BASES-: No visible nodule. No infiltrate. LIVER/GB: The gallbladder surgically absent. No space occupying hepatic lesion. Biliary tree is of normal caliber. PANCREAS: No inflammation. No distinct mass. SPLEEN: No splenic enlargement. No lesion seen. ADRENALS: No nodule. No thickening. KIDNEYS/BLADDER: No hydronephrosis. No nephrolithiasis. No distinct renal mass. Urinary bladder g rossly unremarkable. BOWEL: Normal appendix. Normal bowel caliber. No inflammation. GENITAL ORGANS: No gross abnormality. LYMPH NODES: No greater than 1cm abdominal or pelvic lymph nodes are appreciated. AORTA: No significant abnormality. OSSEOUS STRUCTURES: No significant abnormality is seen. OTHER: No significant additional abnormality is seen. IMPRESSION: 1. No evidence for acute intra-abdominal process.
[2019-06-27] MEDS ORDERED: IVERMECTIN 3 MG TABLET PO STA (15:15)
--- NOTE | 2019-06-27 16:10 | ED ---
Medical Decision Making - Medical Decision Making external rectal exam chaperogned by AD Mosquera did not display acute pathology. - Lab Data Result diagrams: 06/27/19 11:30 06/27/19 11:30 Lab Results 06/27/19 06/27/19 06/27/19 Range/Units 11:30 11:30 11:30 WBC 5.5 (3.8-10.6) k/uL RBC 4.24 (3.80-5.40) m/uL Hgb 12.5 (11.4-16.0) gm/dL Hct 37.0 (34.0-46.0) % MCV 87.3 (80.0-100.0) fL MCH 29.4 (25.0-35.0) pg MCHC 33.7 (31.0-37.0) g/dL RDW 12.7 (11.5-15.5) % Plt Count 302 (150-450) k/uL Neutrophils % 68 % Lymphocytes % 22 % Monocytes % 5 % Eosinophils % 2 % Basophils % 1 % Neutrophils # 3.8 (1.3-7.7) k/uL Lymphocytes # 1.2 (1.0-4.8) k/uL Monocytes # 0.3 (0-1.0) k/uL Eosinophils # 0.1 (0-0.7) k/uL Basophils # 0.0 (0-0.2) k/uL Sodium 140 (137-145) mmol/L Potassium 4.0 (3.5-5.1) mmol/L Chloride 105 (98-107) mmol/L Carbon Dioxide 28 (22-30) mmol/L Anion Gap 7 mmol/L BUN 21 H (7-17) mg/dL Creatinine 0.77 (0.52-1.04) mg/dL Est GFR (CKD-EPI)AfAm >90 (>60 ml/min/1.73 sqM) Est GFR (CKD-EPI)NonAf 85 (>60 ml/min/1.73 sqM) Glucose 107 H (74-99) mg/dL Plasma Lactic Acid Gregg 0.7 (0.7-2.0) mmol/L Calcium 9.5 (8.4-10.2) mg/dL Total Bilirubin 0.5 (0.2-1.3) mg/dL AST 22 (14-36) U/L ALT 12 (4-34) U/L Alkaline Phosphatase 59 (38-126) U/L Total Protein 7.2 (6.3-8.2) g/dL Albumin 4.7 (3.5-5.0) g/dL Lipase 106 (23-300) U/L Urine Color Urine Appearance (Clear) Urine pH (5.0-8.0) Ur Specific [place] (1.001-1.035) Urine Protein (Negative) Urine Glucose (UA) (Negative) Urine Ketones (Negative) Urine Blood (Negative) Urine Nitrite (Negative) Urine Bilirubin (Negative) Urine Urobilinogen (<2.0) mg/dL Ur Leukocyte Esterase (Negative) 06/27/19 Range/Units 13:38 WBC (3.8-10.6) k/uL RBC (3.80-5.40) m/uL Hgb (11.4-16.0) gm/dL Hct (34.0-46.0) % MCV (80.0-100.0) fL MCH (25.0-35.0) pg MCHC (31.0-37.0) g/dL RDW (11.5-15.5) % Plt Count (150-450) k/uL Neutrophils % % Lymphocytes % % Monocytes % % Eosinophils % % Basophils % % Neutrophils # (1.3-7.7) k/uL Lymphocytes # (1.0-4.8) k/uL Monocytes # (0-1.0) k/uL Eosinophils # (0-0.7) k/uL Basophils # (0-0.2) k/uL Sodium (137-145) mmol/L Potassium (3.5-5.1) mmol/L Chloride (98-107) mmol/L Carbon Dioxide (22-30) mmol/L Anion Gap mmol/L BUN (7-17) mg/dL Creatinine (0.52-1.04) mg/dL Est GFR (CKD-EPI)AfAm (>60 ml/min/1.73 sqM) Est GFR (CKD-EPI)NonAf (>60 ml/min/1.73 sqM) Glucose (74-99) mg/dL Plasma Lactic Acid [place] (0.7-2.0) mmol/L Calcium (8.4-10.2) mg/dL Total Bilirubin (0.2-1.3) mg/dL AST (14-36) U/L ALT (4-34) U/L Alkaline Phosphatase (38-126) U/L Total Protein (6.3-8.2) g/dL Albumin (3.5-5.0) g/dL Lipase (23-300) U/L Urine Color Yellow Urine Appearance Clear (Clear) Urine pH 5.5 (5.0-8.0) Ur Specific [place] 1.019 (1.001-1.035) Urine Protein Negative (Negative) Urine Glucose (UA) Negative (Negative) Urine Ketones 1+ H (Negative) Urine Blood Negative (Negative) Urine Nitrite Negative (Negative) Urine Bilirubin Negative (Negative) Urine Urobilinogen <2.0 (<2.0) mg/dL Ur Leukocyte Esterase Negative (Negative) Disposition Clinical Impression: Parasites in stool, Gastroenteritis Disposition: HOME SELF-CARE Condition: Stable Instructions (If sedation given, give patient instructions): Gastroenteritis (ED) Additional Instructions: Follow-up with primary care provider tomorrow. Have liver function tests rechecked in approximately one week. Return immediately to ER if condition worsens in any way. Continue to drink lots of fluids. Is patient prescribed a controlled substance at d/c from ED?: No Referrals: Jim Torres MD [Primary Care Provider] - 1-2 days
== END 2019-06-27 16:44 | disposition home or self-care (01) ==
LOC: EC 10:21
DX: K52.9 Noninfective gastroenteritis and colitis, unspecified (principal); B82.9 Intestinal parasitism, unspecified; I48.91 Unspecified atrial fibrillation; I48.92 Unspecified atrial flutter; I10 Essential (primary) hypertension; F17.200 Nicotine dependence, unspecified, uncomplicated; Z79.899 Other long term (current) drug therapy; Z88.1 Allergy status to other antibiotic agents; Z88.8 Allergy status to other drugs, medicaments and biological substances; Z91.013 Allergy to seafood; Z85.42 Personal history of malignant neoplasm of other parts of uterus
CPT/HCPCS: 36415; 80053; 83605; 83690; 85025; 81003; 74018; 74177; 99285; 96374; 96361; J1885; Q9967

== ENCOUNTER → 2020-04-14 | Outpatient (CLI) | payer MEDICARE ==
--- NOTE | 2020-04-14 22:35 | MR ---
EXAMINATION TYPE: MR brain wo/w con DATE OF EXAM: 04/14/2020 COMPARISON: MRI brain June 13, 2017 HISTORY: Visual distortion, 3rd nerve palsy TECHNIQUE: Multiplanar, multisequence images of the brain and brainstem is performed without and with IV contras t, utilizing 5.5 mL intravenous Gadavist . FINDINGS: Diffusion weighted images demonstrate no evidence of a recent infarct or other diffusion ab normality. There is no worrisome extra-axial fluid collection. The ventricular system and cisternal spaces are stable in size and appearance. The brain volume is age appropriate. Few scattered small foci of T2 hyperintensity is demonstrated throughout the white matter bilaterally. Roughly 7-10 small scattered lesions. Midline structures demonstrate normal morphology. The craniocervical junction appears within normal limits. Post contrast images demonstrate no abnormal enhancement. The dural venous sinuses appear pa tent. Distortion at level of left maxillary sinus redemonstrated. Mild mucosal thickening involving e thmoid sinuses bilaterally redemonstrated. Otherwise paranasal sinuses remain clear. IMPRESSION: Stable mild to minimal nonspecific white matter changes. No suspicious enhancement.
== END | disposition home or self-care (01) ==
LOC: RADMRIMAIN 16:15
PROVIDERS: ATTEND Ophthalmology
DX: R90.82 White matter disease, unspecified (principal)
CPT/HCPCS: 70553; A9585

== ENCOUNTER → 2020-10-23 | Outpatient (CLI) | payer MEDICARE ==
--- NOTE | 2020-10-28 10:07 | P.ARTDOP ---
Arterial Doppler LOWER EXTREMITY ARTERIAL DOPPLER: DATE OF SERVICE: 10/23/2020 Reason for study: Numbness and tingling both feet. Doppler waveforms: Multiphasic bilaterally throughout. Pulse volume recording: []. Pressure gradients: None. Ankle-brachial indices: Greater than 1 bilaterally. Toe brachial indices: 0.85 on the right, 0.73 on the left Impression: Normal study.
== END | disposition home or self-care (01) ==
LOC: RADUSWWP 10:27
PROVIDERS: ATTEND Family Medicine
DX: R20.0 Anesthesia of skin (principal); I73.9 Peripheral vascular disease, unspecified
CPT/HCPCS: 93922

== ENCOUNTER → 2020-12-07 | Outpatient (CLI) | payer MEDICARE ==
--- NOTE | 2020-12-10 09:45 | MM ---
Reason for exam: screening (asymptomatic). Last mammogram was performed 1 year and 7 months ago. History: Patient is postmenopausal, has history of other cancer at age 30, and is nulliparous. Family history of breast cancer in maternal grandmother at age 50. Took estrogen beginning at age 30. Physical Findings: A clinical breast exam by your physician is recommended on an annual basis and results should be correlated with mammographic findings. MG 3D Screening Mammo W/Cad Bilateral CC and MLO view(s) were taken. Prior study comparison: May 08, 2019, bilateral MG diagnostic mammo w CAD [facility]. December 28, 2016, bilateral MG 3d screening mammo w/cad. The breast tissue is heterogeneously dense. This may lower the sensitivity of mammography. No significant changes when compared with prior studies. ASSESSMENT: Benign, BI-RAD 2 RECOMMENDATION: Routine screening mammogram of both breasts in 1 year.
== END | disposition home or self-care (01) ==
LOC: RADMAMWWP 08:16
PROVIDERS: ATTEND Family Medicine
DX: Z12.31 Encounter for screening mammogram for malignant neoplasm of breast (principal); Z78.0 Asymptomatic menopausal state; Z80.3 Family history of malignant neoplasm of breast
CPT/HCPCS: 77063; 77067

== ENCOUNTER → 2021-09-22 | Outpatient (CLI) | payer MEDICARE ==
--- NOTE | 2021-09-22 14:43 | US ---
EXAMINATION TYPE: US venous doppler duplex LE LT DATE OF EXAM: 09/22/2021 2:27 PM COMPARISON: NONE CLINICAL HISTORY: L leg swelling R22.40. SIDE PERFORMED: Left TECHNIQUE: The lower extremity deep venous system is examined utilizing real time linear array sonog [place] with graded compression, doppler sonography and color-flow sonography. VESSELS IMAGED: Common Femoral Vein Deep Femoral Vein Greater Saphenous Vein * Femoral Vein Popliteal Vein Small Saphenous Vein * Proximal Calf Veins (* superficial vessels) Left Leg: Negative for DVT IMPRESSION: No evidence of DVT at this time.
== END | disposition home or self-care (01) ==
LOC: RADUSWWP 13:50
PROVIDERS: ATTEND Family Medicine
DX: R22.40 Localized swelling, mass and lump, unspecified lower limb (principal)

== ENCOUNTER → 2021-10-11 | Outpatient (CLI) | payer MEDICARE ==
[2021-10-11 14:39] LABS: Basophils # (A) 0.13 X 10*3/uL (0.00-0.10); Basophils % (A) 1.6 %; Eosinophils % (A) 2.4 %; HCT 41.3 % (37.2-46.3); HGB 13.2 g/dL (12.0-15.0); Immature Grans, Automated 0.2 %; Lymphocytes # (A) 1.96 X 10*3/uL (0.90-5.00); Lymphocytes % (A) 23.5 %; MCH 28.8 pg (27.0-32.0); MCV 90.2 fL (80.0-97.0); Mean Platelet Volume 10.3 fL (9.5-12.2); Monocytes # (A) 0.52 X 10*3/uL (0.20-1.00); Monocytes % (A) 6.2 %; NRBC Per 100 WBC 0 /100 WBCS (0.0-0.0); Neutrophils % (A) 66.1 %; Platelet Count 364 X 10*3/uL (140-440); RBC 4.58 X 10*6/uL (4.10-5.20); RDW 13.1 % (11.5-14.5); WBC 8.33 X 10*3/uL (4.50-10.00)
[2021-10-11 15:54] LABS: Erythrocyte Sedimentation Rate 1 mm/Hr (0-30)
[2021-10-11 17:34] LABS: Appearance,Urine Clear (Clear); Bilirubin,Urine Negative (Negative); Blood,Urine Negative (Negative); Color,Urine Yellow (Yellow); Ketones,Urine Negative (Negative); Nitrite,Urine Negative (Negative); Specific Gravity,Urine 1.017 (1.001-1.030); Urobilinogen,Urine 0.2 (0.2,1.0)
[2021-10-11 18:38] LABS: ALT 10 U/L (8-44); AST 21 U/L (13-35); African American GFR (CKD) 91.6 (60.0-200.0); Albumin 4.8 g/dL (3.8-4.9); Albumin/Globulin Ratio 2.09 (1.60-3.17); Alkaline Phosphatase 54 U/L (41-126); Amylase 70 U/L (23-121); BUN/Creat Ratio 20.25 Ratio (12.00-20.00); Blood Urea Nitrogen 16.2 mg/dL (9.0-27.0); Calcium 9.5 mg/dL (8.7-10.3); Carbon Dioxide 25.1 mmol/L (20.0-27.5); Chloride 103 mmol/L (96-109); Chol/HDL Ratio 2.82 Ratio; Globulin 2.3 g/dL (1.6-3.3); Glucose 95 mg/dL (70-110); LDL Cholesterol,Calculated 136.2 mg/dL (0.0-131.0); Lipase 37 U/L (14-63); Potassium 4.2 mmol/L (3.5-5.5); Sodium 141 mmol/L (135-145); Total Protein 7.1 g/dL (6.2-8.2)
== END | disposition home or self-care (01) ==
LOC: LABWHC1 07:54
PROVIDERS: ATTEND Family Medicine
DX: E78.5 Hyperlipidemia, unspecified (principal); R60.9 Edema, unspecified; R53.82 Chronic fatigue, unspecified; R10.9 Unspecified abdominal pain
CPT/HCPCS: 36415; 80053; 80061; 81003; 82150; 82306; 82607; 83690; 84439; 84443; 85025; 85652

== ENCOUNTER 2021-12-31 13:39 | Emergency (ER) | payer MEDICARE ==
[2021-12-31] MEDS ORDERED: METOCLOPRAMIDE 5 MG/ML 2 ML VIAL IVP STA (14:46)
[2021-12-31] MEDS ORDERED: MORPHINE SULFATE 4 MG/ML SYRINGE IV STA (14:46)
[2021-12-31] MEDS ORDERED: SODIUM CHLORIDE 0.9% 1,000 ML IV STA (14:46)
[2021-12-31 15:41] LABS: Basophils # (A) 0.1 k/uL (0-0.2); Basophils % (A) 1 %; Eosinophils # (A) 0.2 k/uL (0-0.7); Eosinophils % (A) 2 %; HGB 13.5 gm/dL (11.4-16.0); Lymphocytes # (A) 1.8 k/uL (1.0-4.8); Lymphocytes % (A) 21 %; MCH 29.4 pg (25.0-35.0); MCHC 32.9 g/dL (31.0-37.0); MCV 89.3 fL (80.0-100.0); Mean Platelet Volume 7.6; Monocytes # (A) 0.5 k/uL (0-1.0); Monocytes % (A) 5 %; Neutrophils # (A) 6.2 k/uL (1.3-7.7); Neutrophils % (A) 70 %; Platelet Count 295 k/uL (150-450); RBC 4.59 m/uL (3.80-5.40); RDW 13.1 % (11.5-15.5); WBC 8.8 k/uL (3.8-10.6)
[2021-12-31 15:44] LABS: Appearance,Urine Clear (Clear); Bilirubin,Urine Negative (Negative); Blood,Urine Negative (Negative); Color,Urine Light Yellow; Glucose,Urine (UA) Negative (Negative); Ketones,Urine Negative (Negative); Leukocyte Esterase,Urine Negative (Negative); Nitrite,Urine Negative (Negative); PH, Urine 6.5 (5.0-8.0); Protein,Urine Negative (Negative); Specific Gravity,Urine 1.007 (1.001-1.035); Urobilinogen,Urine <2.0 mg/dL (<2.0)
[2021-12-31 15:46] LABS: ALT 11 U/L (4-34); AST 22 U/L (14-36); African American GFR (CKD) >90 (>60 ml/min/1.73 sqM); Albumin 4.5 g/dL (3.5-5.0); Alkaline Phosphatase 57 U/L (38-126); Amylase 65 U/L (30-110); Anion Gap 7 mmol/L; Blood Urea Nitrogen 17 mg/dL (7-17); Carbon Dioxide 25 mmol/L (22-30); Chloride 105 mmol/L (98-107); Glucose 96 mg/dL (74-99); Lipase 83 U/L (23-300); Non-African American GFR(CKD) 86 (>60 ml/min/1.73 sqM); Partial Thromboplastin Time 22.7 sec (22.0-30.0); Potassium 3.9 mmol/L (3.5-5.1); Sodium 137 mmol/L (137-145); Total Bilirubin 0.3 mg/dL (0.2-1.3); Total Protein 6.9 g/dL (6.3-8.2)
--- NOTE | 2021-12-31 16:20 | ED ---
General Adult HPI - General Chief complaint: Chest Pain Stated complaint: chest pain/abdominal pain Time Seen by Provider: 12/31/21 14:30 Source: patient Mode of arrival: wheelchair Limitations: no limitations - History of Present Illness Initial comments: Patient is a 61-year-old female presenting with chief complaint of abdominal pain. Patient states pain is been going on for nearly a week. It is located primarily in the epigastric region and it is very sharp, at times radiates to her side. She admits to nausea loss of appetite. Patient states she has not had a bowel movement in a week. Patient states that she sees Dr. Saxena, she has a CT of the abdomen and pelvis scheduled, however that is not until next week and the pain has become too intense. She denies any shortness of breath, chest pain, fever, chills, dysuria, hematuria, urgency, frequency, hematochezia, melena, diarrhea, weakness, headache, vision or hearing changes, numbness, tingling. - Related Data Home Medications Medication Instructions Recorded Confirmed Gabapentin [Neurontin] 300 mg PO HS 08/26/14 07/31/19 HYDROmorphone [Dilaudid] 2 - 4 mg PO Q8H PRN 08/26/14 07/31/19 Albuterol Sulfate [Proair Hfa] 1 - 2 puff INHALATION QID PRN 01/08/15 07/31/19 Cholecalciferol [Vitamin D3] 4,000 unit PO DAILY 01/08/15 07/31/19 Ibuprofen 400 mg PO Q4HR PRN 01/08/15 07/31/19 Previous Rx's Medication Instructions Recorded Ondansetron [Zofran ODT] 4 mg PO Q8HR #20 tab 01/08/15 Ciprofloxacin HCl [Cipro] 500 mg PO BID 10 Days #20 tab 12/31/21 metroNIDAZOLE [Flagyl] 500 mg PO TID 10 Days #30 tab 12/31/21 Allergies Allergy/AdvReac Type Severity Reaction Status Date / Time nitroglycerin Allergy Severe "HEART Verified 12/31/21 13:46 STOPPED" erythromycin base Allergy Abdominal Verified 12/31/21 13:46 Pain shellfish derived [Shellfish] Allergy Anaphylaxis Verified 12/31/21 13:46 Review of Systems ROS Statement: Those systems with pertinent positive or pertinent negative responses have been documented in the HPI. ROS Other: All systems not noted in ROS Statement are negative. Past Medical History Past Medical History: Cancer, Hypertension Additional Past Medical History / Comment(s): IRREGULAR HEART BEAT, COMPLEX REGIONAL PAIN SYNDROME, RSD, whiplash, vestibular disease, digestive disorder. Seasonal allergies, osteopenia. 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 She has no other history of STDs in the past. History of Any Multi-Drug Resistant Organisms: None Reported Past Surgical History: Cholecystectomy, Hysterectomy Additional Past Surgical History / Comment(s): RIGHT SHOULDER, ERVIN 1989. Feeding tube placement in 2014. Past Anesthesia/Blood Transfusion Reactions: No Reported Reaction Past Psychological History: No Psychological Hx Reported Past Alcohol Use History: None Reported Past Drug Use History: None Reported - Past Family History Father Family Medical History: Myocardial Infarction ([place]) Mother Family Medical History: Cancer Additional Family Medical History / Comment(s): Melanoma. Maternal grandmother had breast cancer. General Exam Limitations: no limitations General appearance: alert, in no apparent distress Head exam: Present: atraumatic, normocephalic, normal inspection Eye exam: Present: normal appearance, EOMI. Absent: scleral icterus, periorbital swelling Neck exam: Present: normal inspection Respiratory exam: Present: normal lung sounds bilaterally. Absent: respiratory distress, wheezes, rales, rhonchi, stridor Cardiovascular Exam: Present: regular rate, normal rhythm, normal heart sounds. Absent: systolic murmur, diastolic murmur, rubs, gallop, clicks GI/Abdominal exam: Present: soft, tenderness. Absent: distended, guarding, rebound, rigid Neurological exam: Present: alert, oriented X3, CN II-XII intact Psychiatric exam: Present: normal affect, normal mood Skin exam: Present: warm, dry, intact, normal color. Absent: rash Course Vital Signs 12/31/21 12/31/21 12/31/21 13:42 16:52 17:49 Temperature 98.1 F 98.6 F Pulse Rate 87 76 76 Respiratory 18 15 16 Rate Blood Pressure 137/79 155/91 129/95 O2 Sat by Pulse 99 100 100 Oximetry EKG Findings - EKG Comments: EKG Findings:: Sinus rhythm rate of 74. ID interval 146. QRS duration 85. QTc 389. No ischemic ST or T-wave changes. Medical Decision Making - Medical Decision Making Patient is a 61-year-old female presenting with chief complaint of abdominal pain. On examination there is diffuse abdominal tenderness, no guarding or rebound. Lab work is grossly negative. CT of abdomen and pelvis suggests colitis. There is unchanged biliary ductal dilation which appears to be chronic in this patient, she is status post cholecystectomy and lab work is all WNL. Patient is given treatment for colitis with Cipro and Flagyl. Instructed to follow-up with PCP and her GI Dr. Saxena in one to 2 days. Report back to ER with any new or worsening symptoms. Discussed return parameters answered all questions. Patient conveyed verbal understanding and agreed to the plan. I discussed this case with my attending Dr. Rodriguez - Lab Data Result diagrams: 12/31/21 15:29 12/31/21 15:29 Lab Results 12/31/21 12/31/21 12/31/21 Range/Units 15:29 15:29 15:29 WBC 8.8 (3.8-10.6) k/uL RBC 4.59 (3.80-5.40) m/uL Hgb 13.5 (11.4-16.0) gm/dL Hct 41.0 (34.0-46.0) % MCV 89.3 (80.0-100.0) fL MCH 29.4 (25.0-35.0) pg MCHC 32.9 (31.0-37.0) g/dL RDW 13.1 (11.5-15.5) % Plt Count 295 (150-450) k/uL MPV 7.6 Neutrophils % 70 % Lymphocytes % 21 % Monocytes % 5 % Eosinophils % 2 % Basophils % 1 % Neutrophils # 6.2 (1.3-7.7) k/uL Lymphocytes # 1.8 (1.0-4.8) k/uL Monocytes # 0.5 (0-1.0) k/uL Eosinophils # 0.2 (0-0.7) k/uL Basophils # 0.1 (0-0.2) k/uL PT 11.0 (9.0-12.0) sec INR 1.0 (<1.2) APTT 22.7 (22.0-30.0) sec Sodium 137 (137-145) mmol/L Potassium 3.9 (3.5-5.1) mmol/L Chloride 105 (98-107) mmol/L Carbon Dioxide 25 (22-30) mmol/L Anion Gap 7 mmol/L BUN 17 (7-17) mg/dL Creatinine 0.75 (0.52-1.04) mg/dL Est GFR (CKD-EPI)AfAm >90 (>60 ml/min/1.73 sqM) Est GFR (CKD-EPI)NonAf 86 (>60 ml/min/1.73 sqM) Glucose 96 (74-99) mg/dL Plasma Lactic Acid Gregg (0.7-2.0) mmol/L Calcium 9.0 (8.4-10.2) mg/dL Total Bilirubin 0.3 (0.2-1.3) mg/dL AST 22 (14-36) U/L ALT 11 (4-34) U/L Alkaline Phosphatase 57 (38-126) U/L Troponin I (0.000-0.034) ng/mL Total Protein 6.9 (6.3-8.2) g/dL Albumin 4.5 (3.5-5.0) g/dL Amylase 65 (30-110) U/L Lipase 83 (23-300) U/L Urine Color Urine Appearance (Clear) Urine pH (5.0-8.0) Ur Specific [place] (1.001-1.035) Urine Protein (Negative) Urine Glucose (UA) (Negative) Urine Ketones (Negative) Urine Blood (Negative) Urine Nitrite (Negative) Urine Bilirubin (Negative) Urine Urobilinogen (<2.0) mg/dL Ur Leukocyte Esterase (Negative) 12/31/21 12/31/21 12/31/21 Range/Units 15:29 15:29 15:29 WBC (3.8-10.6) k/uL RBC (3.80-5.40) m/uL Hgb (11.4-16.0) gm/dL Hct (34.0-46.0) % MCV (80.0-100.0) fL MCH (25.0-35.0) pg MCHC (31.0-37.0) g/dL RDW (11.5-15.5) % Plt Count (150-450) k/uL MPV Neutrophils % % Lymphocytes % % Monocytes % % Eosinophils % % Basophils % % Neutrophils # (1.3-7.7) k/uL Lymphocytes # (1.0-4.8) k/uL Monocytes # (0-1.0) k/uL Eosinophils # (0-0.7) k/uL Basophils # (0-0.2) k/uL PT (9.0-12.0) sec INR (<1.2) APTT (22.0-30.0) sec Sodium (137-145) mmol/L Potassium (3.5-5.1) mmol/L Chloride (98-107) mmol/L Carbon Dioxide (22-30) mmol/L Anion Gap mmol/L BUN (7-17) mg/dL Creatinine (0.52-1.04) mg/dL Est GFR (CKD-EPI)AfAm (>60 ml/min/1.73 sqM) Est GFR (CKD-EPI)NonAf (>60 ml/min/1.73 sqM) Glucose (74-99) mg/dL Plasma Lactic Acid Gregg 0.8 (0.7-2.0) mmol/L Calcium (8.4-10.2) mg/dL Total Bilirubin (0.2-1.3) mg/dL AST (14-36) U/L ALT (4-34) U/L Alkaline Phosphatase (38-126) U/L Troponin I <0.012 (0.000-0.034) ng/mL Total Protein (6.3-8.2) g/dL Albumin (3.5-5.0) g/dL Amylase (30-110) U/L Lipase (23-300) U/L Urine Color Light Yellow Urine Appearance Clear (Clear) Urine pH 6.5 (5.0-8.0) Ur Specific [place] 1.007 (1.001-1.035) Urine Protein Negative (Negative) Urine Glucose (UA) Negative (Negative) Urine Ketones Negative (Negative) Urine Blood Negative (Negative) Urine Nitrite Negative (Negative) Urine Bilirubin Negative (Negative) Urine Urobilinogen <2.0 (<2.0) mg/dL Ur Leukocyte Esterase Negative (Negative) Disposition Clinical Impression: Colitis Disposition: HOME SELF-CARE Condition: Good Instructions (If sedation given, give patient instructions): Clear Liquid Diet (ED), Colitis (ED) Additional Instructions: Follow-up with PCP and GI as soon as possible. Report back to ER with any new or worsening symptoms. Take medication as prescribed. Follow clear liquid diet for the next 1-2 days. Prescriptions: Ciprofloxacin HCl [Cipro] 500 mg PO BID 10 Days #20 tab metroNIDAZOLE [Flagyl] 500 mg PO TID 10 Days #30 tab Is patient prescribed a controlled substance at d/c from ED?: No Referrals: Jim Torres MD [Primary Care Provider] - 1-2 days Time of Disposition: 17:10
--- NOTE | 2021-12-31 16:46 | CT ---
EXAMINATION TYPE: CT abdomen pelvis w con DATE OF EXAM: 12/31/2021 COMPARISON: 06/27/2019 HISTORY: 61-year-old female Abdominal pain TECHNIQUE: Contiguous axial scanning of the abdomen and pelvis following administration of 100 ml Iso zeus 300 IV contrast. Delayed images through the kidneys and coronal/sagittal reconstructions perform ed. CT DLP: 483.2 mGycm Automated exposure control for dose reduction was used. FINDINGS: Heart normal size without pericardial effusion. Lung bases clear without effusion. Unchanged dilated bile duct up to 1.6 cm with mild intrahepatic biliary ductal dilatation. Patient is status post cholecystectomy. Portal venous system is patent. Adrenal glands, kidneys, spleen, and pancreas within normal limits. No dilated small bowel, free fluid, or free air. No mesenteric or retroperitoneal adenopathy. Cecum hangs low in the pelvis. Appendix not discretely seen. No secondary findings of acute appendici tis in the right side of the pelvis. Redundant transverse colon also coming down into the anterior pe lvis. Moderate stool burden. Circumferential wall thickening involving the mid sigmoid colon, axial i mage 61. No pericolonic inflammatory change. Scattered mild atherosclerotic calcifications abdominal aorta and iliac arteries. Mild circumferential bladder wall thickening. Uterus surgically absent. Suspected visualization of a small right ovary. A few pelvic phleboliths. Left ovary not clearly delineated. No abnormal fluid col lection in the pelvis or pelvic lymphadenopathy. Bones: Facet arthropathy lower lumbar spine with trace grade 1 anterolisthesis L4-L5. IMPRESSION: 1. UNCHANGED BILIARY DUCTAL DILATATION. THE BILE DUCT MEASURES 1.6 CM. THIS APPEARS TO BE CHRONIC IN THE PATIENT. CORROBORATE WITH ALKALINE PHOSPHATASE AND BILIRUBIN LEVELS. 2. A segment of circumferentially thickened mid sigmoid colon. Consider a mild nonspecific infectious or inflammatory colitis. 3. Additional mild circumferential bladder wall thickening. Correlate to exclude cystitis.
[2021-12-31 16:54] VITALS: PULSE 76
[2021-12-31] MEDS ORDERED: HYDROmorphone 0.5 MG/0.5 ML SYRINGE IVP STA (16:54)
[2021-12-31] MEDS ORDERED: CIPROFLOXACIN HCL 500 MG TAB PO STA (17:05)
[2021-12-31] MEDS ORDERED: metroNIDAZOLE 500 MG TAB PO STA (17:06)
[2021-12-31] MEDS ORDERED: ONDANSETRON 4 MG ODT STARTER PACK 2 TAB BTL PO STA (17:07)
[2021-12-31] MEDS ORDERED: ACET/COD 300 MG/30 MG STARTER PACK 6 TAB BTL PO STA (17:07)
[2021-12-31 17:50] VITALS: BP 129/95; RESP 16; TEMP 98.6
== END 2021-12-31 17:50 | disposition home or self-care (01) ==
LOC: EC 13:39
DX: K52.9 Noninfective gastroenteritis and colitis, unspecified (principal); I10 Essential (primary) hypertension; Z88.8 Allergy status to other drugs, medicaments and biological substances; Z88.1 Allergy status to other antibiotic agents; Z91.013 Allergy to seafood; Z79.899 Other long term (current) drug therapy
CPT/HCPCS: 36415; 93005; 80053; 82150; 83605; 83690; 84484; 85025; 85610; 85730; 81003; 74177; 99284; 96374; 96375 ×2; 96361; J2270; J2765; S0119; J1170; Q9967

== ENCOUNTER 2022-02-08 17:00 | Observation (INO) | payer MEDICARE ==
[2022-02-08] MEDS ORDERED: DICYCLOMINE 10 MG/ML 2 ML AMP IM ONE ×2 (18:08→18:58)
[2022-02-08] MEDS ORDERED: FAMOTIDINE 20 MG/2 ML VIAL IVP ONE (18:08)
[2022-02-08] MEDS ORDERED: ONDANSETRON 4 MG/2 ML VIAL ONE (18:58)
[2022-02-08] MEDS ORDERED: FAMOTIDINE 20 MG/2 ML VIAL ONE (18:58)
[2022-02-08 21:51] LABS: Basophils # (A) 0.1 k/uL (0-0.2); Basophils % (A) 1 %; Eosinophils # (A) 0.1 k/uL (0-0.7); Eosinophils % (A) 2 %; HCT 40.9 % (34.0-46.0); HGB 13.3 gm/dL (11.4-16.0); Lymphocytes % (A) 24 %; MCH 28.9 pg (25.0-35.0); MCHC 32.4 g/dL (31.0-37.0); MCV 89.2 fL (80.0-100.0); Monocytes # (A) 0.6 k/uL (0-1.0); Monocytes % (A) 7 %; Neutrophils # (A) 5.4 k/uL (1.3-7.7); Neutrophils % (A) 64 %; Platelet Count 259 k/uL (150-450); RBC 4.58 m/uL (3.80-5.40); RDW 12.5 % (11.5-15.5); WBC 8.4 k/uL (3.8-10.6)
[2022-02-08 22:00] LABS: Partial Thromboplastin Time 22.2 sec (22.0-30.0); Prothrombin Time 10.5 sec (9.0-12.0)
[2022-02-08 22:17] LABS: Albumin 4.1 g/dL (3.5-5.0); Calcium 9.1 mg/dL (8.4-10.2); Potassium 3.8 mmol/L (3.5-5.1); Total Bilirubin 0.4 mg/dL (0.2-1.3); Total Protein 6.3 g/dL (6.3-8.2)
[2022-02-08 22:42] LABS: Appearance,Urine Clear (Clear); Bilirubin,Urine Negative (Negative); Blood,Urine Negative (Negative); Color,Urine Yellow; Glucose,Urine (UA) Negative (Negative); Ketones,Urine Negative (Negative); Leukocyte Esterase,Urine Negative (Negative); Nitrite,Urine Negative (Negative); Protein,Urine Negative (Negative); Urobilinogen,Urine <2.0 mg/dL (<2.0)
[2022-02-09] MEDS ORDERED: ONDANSETRON 4 MG/2 ML VIAL IVP PRN (01:42)
[2022-02-09] MEDS ORDERED: MORPHINE SULFATE 4 MG/ML SYRINGE IV PRN (01:42)
[2022-02-09] MEDS ORDERED: NALOXONE 0.4 MG/ML 1 ML VIAL IV PRN (01:42)
[2022-02-09] MEDS ORDERED: SODIUM CHLORIDE 0.9% 1,000 ML IV SCH (01:45)
[2022-02-09] MEDS ORDERED: ACETAMINOPHEN TAB 500 MG TAB PO STA (04:46)
--- NOTE | 2022-02-09 05:40 | P.HPIM ---
History of Present Illness H&P Date: 02/09/22 Chief Complaint: Chest pain 61-year-old female with GERD Patient comes into the hospital with couple day history of retrosternal chest pain described as pressure 8 out of 10 in severity associated with shortness of breath, palpitations, and dizziness. Denies any associated nausea or vomiting patient reports that these episodes can happen with activity sometimes at rest. She denies having any stress test in the past She is also concerned regarding her chronic diarrhea which is been going on for many weeks now. She is hoping to get colonoscopy soon as an outpatient. She denies any GI bleeding. She claims that she had C. diff testing as an outpatient was negative. Patient had similar complaints back in November where CT of the abdomen showed colitis. Otherwise patient denies any fevers or chills denies any coughing denies any runny nose or sore throat, denies any abdominal pain. Workup in the ED overall was unremarkable, troponins are negative EKG no acute ST changes Patient denies tobacco smoking, illicit drugs or alcohol Review of Systems Pertinent positives as noted in HPI. All other systems were reviewed and are negative Past Medical History Past Medical History: Cancer, Hypertension Additional Past Medical History / Comment(s): IRREGULAR HEART BEAT, COMPLEX REGIONAL PAIN SYNDROME, RSD, whiplash, vestibular disease, digestive disorder. Seasonal allergies, osteopenia. 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 She has no other history of STDs in the past. History of Any Multi-Drug Resistant Organisms: None Reported Past Surgical History: Cholecystectomy, Hysterectomy Additional Past Surgical History / Comment(s): RIGHT SHOULDER, ERVIN 1989. Feeding tube placement in 2014. Past Anesthesia/Blood Transfusion Reactions: No Reported Reaction Past Psychological History: No Psychological Hx Reported Past Alcohol Use History: None Reported Past Drug Use History: None Reported - Past Family History Father Family Medical History: Myocardial Infarction ([place]) Mother Family Medical History: Cancer Additional Family Medical History / Comment(s): Melanoma. Maternal grandmother had breast cancer. Medications and Allergies Home Medications Medication Instructions Recorded Confirmed Type Gabapentin [Neurontin] 300 mg PO HS 08/26/14 07/31/19 History HYDROmorphone [Dilaudid] 2 - 4 mg PO Q8H PRN 08/26/14 07/31/19 History Albuterol Sulfate [Proair Hfa] 1 - 2 puff INHALATION QID PRN 01/08/15 07/31/19 History Cholecalciferol [Vitamin D3] 4,000 unit PO DAILY 01/08/15 07/31/19 History Ibuprofen 400 mg PO Q4HR PRN 01/08/15 07/31/19 History Ondansetron [Zofran ODT] 4 mg PO Q8HR #20 tab 01/08/15 07/31/19 Rx Ciprofloxacin HCl [Cipro] 500 mg PO BID 10 Days #20 tab 12/31/21 Rx metroNIDAZOLE [Flagyl] 500 mg PO TID 10 Days #30 tab 12/31/21 Rx Allergies Allergy/AdvReac Type Severity Reaction Status Date / Time nitroglycerin Allergy Severe "HEART Verified 12/31/21 13:46 STOPPED" erythromycin base Allergy Abdominal Verified 12/31/21 13:46 Pain shellfish derived [Shellfish] Allergy Anaphylaxis Verified 12/31/21 13:46 Physical Exam Vitals: Vital Signs Pulse Resp BP Pulse Ox 02/09/22 04:40 86 18 124/82 96 Intake and Output 02/08/22 02/08/22 02/09/22 14:59 22:59 06:59 Other: Weight 49.895 kg This examConstitutional: No acute distress, conversant, pleasant Eyes: Anicteric sclerae, moist conjunctiva, Pupils equal round reactive to light ENMT: NC/AT Oropharynx clear, no erythema, or exudates Neck: Supple, no masses, or JVD No carotid bruits No thyromegaly Lungs: Clear to auscultation Clear to percussion Normal respiratory effort, no accessory muscle use Cardiovascular: Heart regular in rate and rhythm, No murmurs, gallops, or rubs No peripheral edema Abdominal: Soft Nontender, no guarding, rebound or rigidity Abdomen moving with respiration Normoactive bowel sounds No hepatomegaly, No splenomegaly No palpable mass No abdominal wall hernia noted Skin: Normal temperature, tone, texture, turgor No induration No subcutaneous nodules No rash, lesions No ulcers Extremities: No digital cyanosis No clubbing Pedal pulses intact and symmetrical Radial pulses intact and symmetrical No calf tenderness Psychiatric: Alert and oriented to person, place and time Appropriate affect fair judgement Neuro Muscles Strength 5/5 in all 4 extremities Sensation to light touch grossly present throughout Cranial nerves II-XII grossly intact No focal sensory deficits Lymphatics: no palpable cervical or supraclavicular , or inguinal lymph nodes Results CBC & Chem 7: 02/08/22 18:08 02/08/22 18:08 Labs: Abnormal Lab Results - Last 24 Hours (Table) 02/08/22 Range/Units 18:08 Sodium 136 L (137-145) mmol/L BUN 20 H (7-17) mg/dL Amylase 113 H (30-110) U/L Lipase 419 H (23-300) U/L Assessment and Plan Assessment: atypical chest pain rule out ACS EKG no acute changes trops negative X2 awake overnight monitor monitor vital signs ASA, statin cardiology consult A1c, lipid panel , TSH pain control Chronic conditions Chronic pain syndrome Chronic diarrhea Consider outpatient follow-up with GI for colonoscopy due to history of colitis. Check C. diff PPI Imodium when necessary for diarrhea GERD Continue with PPI Full code DVT prophylaxis heparin subcutaneous
[2022-02-09] MEDS: ASPIRIN 81 MG PO SCH (08:14)
[2022-02-09] MEDS: PANTOPRAZOLE 40 MG/10 ML VIAL IV SCH (08:14)
[2022-02-09] MEDS: HEPARIN SODIUM,PORCINE/PF 5,000 UNIT/0.5 ML SYRINGE SQ SCH ×3 (08:14→19:35)
[2022-02-09] MEDS: ATORVASTATIN 20 MG TAB PO SCH (08:21)
[2022-02-09] MEDS ORDERED: PROCHLORPERAZINE INJ 10 MG/2 ML VIAL IVP STA (09:28)
[2022-02-09] MEDS ORDERED: KETOROLAC 15 MG/ML 1 ML VIAL IVP STA (09:28)
[2022-02-09] MEDS ORDERED: diphenhydrAMINE 50 MG/ML 1 ML VIAL IVP STA (09:28)
--- NOTE | 2022-02-09 09:33 | P.PN ---
Subjective Progress Note Date: 02/09/22 Hospital course: Patient is a 61-year-old female with a past medical history of GERD, cervical cancer status post hysterectomy followed by radiation and chemotherapy treatment, and gastritis.she presented to the emergency department with a chief complaint of chest pain or abdominal pain, dizziness, nausea, decreased appetite, weight loss, and uncontrolled diarrhea for many weeks.patient underwent full evaluation in the emergency department. CBC, coags, and CMP showing no significant abnormalities. D-dimer negative at less than 0.017 and troponin negative at less than 0.0122 draws. Amylase elevated at 113 and lipase elevated at 419. EKG was completed showing normal sinus rhythm and 92 bpm with no noted T wave or ST abnormality showing no signs of acute ischemia. Patient was admitted under our services with consultation to general surgery for evaluation for possible endoscopy/colonoscopy. Physical exam: Patient reports she is experiencing uncontrolled abdominal pain and persistent diarrhea. She reports she has not been able to eat anything in 3 days. States that she was scheduled for a colonoscopy outpatient at the end of this month but states that she is too weak and dizzy to continue on.patient is currently denying chest pain, palpitations, or shortness of breath reports mainly experiencing abdominal/epigastric pain nausea and uncontrolled diarrhea at this time. Vital signs reviewed and stable. General: Nontoxic, no distress and appears stated age. Derm: Skin warm and dry, normal coloration for ethnicity. Head: Atraumatic, normocephalic and symmetric. Eyes: EOMs intact, no lid lag, and anicteric sclera Mouth: no lip lesions, mucus membranes moist Cardiovascular: regular rate and rhythm with normal S1S2, no murmur, positive posterior tibial pulses bilaterally, and cap refill < 2 seconds. Lungs: Respirations even, regular, and unlabored on room air. Lungs CTA bilaterally, no rhonchi, no rales, no wheezing, and no accessory muscle usage. Abdominal: soft, bowel sounds 4 quadrants,diffuse abdominal tenderness topalpation, no guarding, no appreciable organomegaly Ext: ROM intact. No gross muscle atrophy, no edema, no contractures Neuro: Speech clear, face symmetrical and CN II-XII grossly intact with no noted focal neuro deficits Psych: Alert and oriented to person, place, time, and situation. Appropriate and pleasant affect. Assessment and Plan of Care: Chest pain, rule out acute coronary event -Cardiology consult, appreciate further recommendations -Telemetry monitoring -Trend troponins -Aspirin and atorvastatin Abdominal pain, nausea, decreased appetite, and diarrhea. likely gastritis awaiting CT results -amylase 113 and lipase 419. -NPO until evaluated by general surgery team. -IV fluid hydration -CT abdomen and pelvis -Gen. surgery consulted for possible evaluation for endoscopy/colonoscopy. -stool cultures. -Continue close monitoring with repeat a.m. labs. CODE STATUS: full code DVT prophylaxis: heparin Discussed with: patient and RN Anticipated discharge date: 2-[address]: home A total of 37 minutes was spent on the care of this complex patient more than 50% of the time was spent in counseling and care coordination. I reviewed the documentation as provided by the HERIBERTO above, who is the original author of this note. I agree with the documented assessment and plan, with the following changes: none Objective - Vital Signs Vital signs: Vital Signs Temp 98.1 F 02/09/22 09:06 Pulse 70 02/09/22 09:06 Resp 16 02/09/22 09:06 BP 122/80 02/09/22 09:06 Pulse Ox 98 02/09/22 09:06 FiO2 Intake & Output 02/08/22 02/09/22 02/09/22 18:59 06:59 18:59 Weight 49.895 kg - Labs CBC & Chem 7: 02/08/22 18:08 02/08/22 18:08 Labs: Abnormal Lab Results - Last 24 Hours (Table) 02/08/22 Range/Units 18:08 Sodium 136 L (137-145) mmol/L BUN 20 H (7-17) mg/dL Amylase 113 H (30-110) U/L Lipase 419 H (23-300) U/L
[2022-02-09 11:00] LABS: Chol/HDL Ratio 2.59 Ratio; LDL Cholesterol,Calculated 98.6 mg/dL (0.0-131.0)
[2022-02-09] MEDS ORDERED: IOPAMIDOL CONTRAST (ORAL USE) VIAL PO PRN (12:08)
[2022-02-09] MEDS ORDERED: PEG 3350 (236 GM/BTL) + LYTES 4,000 ML BOTTLE PO ONE (13:00)
[2022-02-09] MEDS: LACTATED RINGERS 1,000 ML IV SCH ×2 (13:01→19:35)
[2022-02-09] MEDS: IOPAMIDOL CONTRAST (ORAL USE) VIAL PO PRN ×2 (14:34→15:04)
--- NOTE | 2022-02-09 16:13 | P.GSCN ---
History of Present Illness Consult date: 02/09/22 History of present illness: CHIEF COMPLAINT: Abdominal pain HISTORY OF PRESENT ILLNESS: This is a 61-year-old female with a known history of small bowel bacterial overgrowth and cervical cancer status post hysterectomy with radiation and chemotherapy in 1989. Patient surgical history includes cholecystectomy, hysterectomy and feeding tube that was placed 2014. Patient initially presented to the hospital with complaints of epigastric pain and chest pain. Troponins were negative 3. The patient evaluated by medicine service EKG no acute changes. Patient did complain of nausea and diarrhea. Surgical service consulted regarding patient's abdominal pain and persistent diarrhea. Patient has been having abdominal pain since 12/2021. Patient had a computed to mography scan of the abdomen and pelvis in December of the head showed evidence of colitis. Patient was discharged with antibiotics. She reports feeling better for a short period of time and then became sick about it was related to the Flagyl she stopped taking the Flagyl after a week of taking the medication. Patient's diarrhea did flareup she started having epigastric pain as well as diffuse tenderness as well as nausea. Patient reports that she's had EGD and colonoscopy [place] [address] Galo and reports that those findings were negative. Patient also reports having issues with not being able to tolerate bowel prep on another colonoscopy that she was supposed to help with Dr. Galo. Patient reports no prior history of colitis since that initial diagnosis on CAT scan in December. I'm she has been having chills and sweats. Denies any vomiting. Denies any fever. Abdominal surgical history includes cholecystectomy and hysterectomy. Patient denies any blood in her stools or black stools. Patient seen and examined with Dr. colorado PAST MEDICAL HISTORY: See list. PAST SURGICAL HISTORY: See list. MEDICATIONS: See list. ALLERGIES: See list. SOCIAL HISTORY: No illicit drug use. REVIEW OF SYSTEMS: CONSTITUTIONAL: Denies fever or chills. HEENT: Denies blurred vision, vision changes, or eye pain. Denies hemoptysis CARDIOVASCULAR: Denies chest pain or pressure. RESPIRATORY: No shortness of breath. GASTROINTESTINAL: See HPI for pertinent findings HEMATOLOGIC: Denies bleeding disorders. GENITOURINARY: Denies any blood in urine or increased urinary frequency. SKIN: Denies pruitis. Denies rash. PHYSICAL EXAM: VITAL SIGNS: Reviewed GENERAL: Well-developed in no acute distress. HEENT: No sclera icterus. Extraocular movements grossly intact. Moist buccal mucosa. Head is atraumatic, normocephalic. No nasal drainage. ABDOMEN: Soft. Nondistended. Diffuse tenderness and tenderness with palpation of epigastric area NEUROLOGIC: Alert and oriented. Cranial nerves II through XII grossly intact. LABORATORY DATA: WBC is 8.4 Hgb 13.3 platelets 259 INR 1.0 Sodium is 136 potassium 3.8 creatinine 0.85 Troponin are negative 4 Lipase 419 TSH 2.120 Urinalysis negative IMAGING: ASSESSMENT: 1. Abdominal pain with diarrhea and prior CAT scan with evidence of colitis 2. History of cervical cancer status post hysterectomy with radiation and chemotherapy PLAN: -Patient scheduled for EGD tomorrow, 02/10/[address]ado -Initially recommended EGD and colonoscopy. At this time patient is declining colonoscopy due to being unable to tolerate bowel prep in the past -Nothing by mouth after midnight -Computed tomography scan abdomen and pelvis with oral contrast. Patient reports that she was unable to tolerate the IV contrast -Continue PPI Physician Cartography Supervisor note has been reviewed by physician. Signing provider agrees with the documented findings, assessment, and plan of care. Past Medical History Past Medical History: Cancer, Hypertension Additional Past Medical History / Comment(s): IRREGULAR HEART BEAT, COMPLEX REGIONAL PAIN SYNDROME, RSD, whiplash, vestibular disease, digestive disorder. Seasonal allergies, osteopenia. Past [employer] history: Cervical cancer status post ERVIN, radiation and chemotherapy in 1989. She has no other history of STDs in the past. History of Any Multi-Drug Resistant Organisms: None Reported Past Surgical History: Cholecystectomy, Hysterectomy Additional Past Surgical History / Comment(s): RIGHT SHOULDER, ERVIN 1989. Feeding tube placement in 2014. Past Anesthesia/Blood Transfusion Reactions: No Reported Reaction Past Psychological History: No Psychological Hx Reported Smoking Status: Former smoker Past Alcohol Use History: None Reported Past Drug Use History: None Reported - Past Family History Father Family Medical History: Myocardial Infarction ([place]) Mother Family Medical History: Cancer Additional Family Medical History / Comment(s): Melanoma. Maternal grandmother had breast cancer. Medications and Allergies Home Medications Medication Instructions Recorded Confirmed Type Cholestyramine (with Sugar) 4 gm PO BID 02/09/22 02/09/22 History [Cholestyramine Packet] Cyclobenzaprine [Flexeril] 5 mg PO Q8H PRN 02/09/22 02/09/22 History Ondansetron Odt [Zofran Odt] 8 mg PO TID PRN 02/09/22 02/09/22 History Ondansetron [Zofran ODT] 4 mg PO AC-BID 02/09/22 02/09/22 History Pantoprazole [Protonix] 40 mg PO BID 02/09/22 02/09/22 History Allergies Allergy/AdvReac Type Severity Reaction Status Date / Time nitroglycerin Allergy Severe "HEART Verified 02/09/22 10:32 STOPPED" shellfish derived [Shellfish] Allergy Anaphylaxis Verified 02/09/22 10:32 erythromycin base AdvReac Abdominal Verified 02/09/22 10:32 Pain pregabalin [From Lyrica] AdvReac weakness Verified 02/09/22 10:32 Surgical - Exam Vital Signs Pulse Resp BP Pulse Ox 86 18 124/82 96 02/09/22 04:40 02/09/22 04:40 02/09/22 04:40 02/09/22 04:40 Results - Labs 02/08/22 18:08 02/08/22 18:08 Abnormal Lab Results - Last 24 Hours (Table) 02/08/22 02/09/22 Range/Units 18:08 05:45 Sodium 136 L (137-145) mmol/L BUN 20 H (7-17) mg/dL HDL Cholesterol 75.80 H (40.00-60.00) mg/dL Amylase 113 H (30-110) U/L Lipase 419 H (23-300) U/L Diabetes panel 02/08/22 02/09/22 02/09/22 Range/Units 18:08 05:45 05:45 Sodium 136 L (137-145) mmol/L Potassium 3.8 (3.5-5.1) mmol/L Chloride 101 (98-107) mmol/L Carbon Dioxide 25 (22-30) mmol/L BUN 20 H (7-17) mg/dL Creatinine 0.85 (0.52-1.04) mg/dL Glucose 97 (74-99) mg/dL Hemoglobin A1c 5.8 (0.0-6.0) % Calcium 9.1 (8.4-10.2) mg/dL AST 18 (14-36) U/L ALT 11 (4-34) U/L Alkaline Phosphatase 57 (38-126) U/L Total Protein 6.3 (6.3-8.2) g/dL Albumin 4.1 (3.5-5.0) g/dL Triglycerides 108.00 (0.00-149.00) mg/dL HDL Cholesterol 75.80 H (40.00-60.00) mg/dL Thyroid panel 02/09/22 Range/Units 05:45 TSH 2.120 (0.350-5.500) uIU/mL Calcium panel 02/08/22 Range/Units 18:08 Calcium 9.1 (8.4-10.2) mg/dL Albumin 4.1 (3.5-5.0) g/dL Pituitary panel 02/08/22 02/09/22 Range/Units 18:08 05:45 Sodium 136 L (137-145) mmol/L Potassium 3.8 (3.5-5.1) mmol/L Chloride 101 (98-107) mmol/L Carbon Dioxide 25 (22-30) mmol/L BUN 20 H (7-17) mg/dL Creatinine 0.85 (0.52-1.04) mg/dL Glucose 97 (74-99) mg/dL Calcium 9.1 (8.4-10.2) mg/dL TSH 2.120 (0.350-5.500) uIU/mL Adrenal panel 02/08/22 Range/Units 18:08 Sodium 136 L (137-145) mmol/L Potassium 3.8 (3.5-5.1) mmol/L Chloride 101 (98-107) mmol/L Carbon Dioxide 25 (22-30) mmol/L BUN 20 H (7-17) mg/dL Creatinine 0.85 (0.52-1.04) mg/dL Glucose 97 (74-99) mg/dL Calcium 9.1 (8.4-10.2) mg/dL Total Bilirubin 0.4 (0.2-1.3) mg/dL AST 18 (14-36) U/L ALT 11 (4-34) U/L Alkaline Phosphatase 57 (38-126) U/L Total Protein 6.3 (6.3-8.2) g/dL Albumin 4.1 (3.5-5.0) g/dL
--- NOTE | 2022-02-09 17:23 | CT ---
EXAM: CT Abdomen and Pelvis Without Intravenous Contrast CLINICAL HISTORY: ITS.REASON CT Reason: Abdominal pain, diarrhea TECHNIQUE: Axial computed tomography images of the abdomen and pelvis without intravenous contrast. CTDI is 4.8 mGy and DLP is 229.4 mGy-cm. This CT exam was performed using one or more of the following dose reduction techniques: automated exposure control, adjustment of the mA and/or kV according to patient size, and/or use of iterative reconstruction technique. COMPARISON: None FINDINGS: Lung bases: Unremarkable. No mass. No consolidation. ABDOMEN: Liver: Mild hepatomegaly. Gallbladder and bile ducts: Prior cholecystectomy. No ductal dilation. Pancreas: Unremarkable. No ductal dilation. Spleen: Unremarkable. No splenomegaly. Adrenals: Unremarkable. No mass. Kidneys and ureters: No hydronephrosis or stone. Stomach and bowel: Prominence of the prakash of the rectum and colon may be accentuated by underdistention, but pancolitis and proctitis is suspected. Fluid and gas-filled small bowel loops may represent enteritis. Evaluation of the stomach is limited by underdistention. PELVIS: Appendix: Appendix is not definitely visualized on this exam. Bladder: Unremarkable. No stones. Reproductive: Prior hysterectomy. ABDOMEN and PELVIS: Intraperitoneal space: Unremarkable. No free air. No significant fluid collection. Bones/joints: No acute fracture. No dislocation. Soft tissues: Unremarkable. Vasculature: Atherosclerotic changes of the vasculature. No aortic aneurysm. Lymph nodes: Unremarkable. No enlarged lymph nodes. IMPRESSION: 1. Prominence of the prakash of the rectum and colon may be accentuated by underdistention, but pancolitis and proctitis is suspected. 2. Fluid and gas-filled small bowel loops may represent enteritis.
--- NOTE | 2022-02-09 18:06 | XR ---
EXAM: XR Chest, 2 Views CLINICAL HISTORY: ITS.REASON XR Reason: Chest pain TECHNIQUE: Frontal and lateral views of the chest. COMPARISON: None FINDINGS: Hardware: None. Lungs/pleura: Normal. No focal consolidation. No pleural effusion or pneumothorax. Heart/mediastinum: Normal. No cardiomegaly. Soft tissues: Unremarkable. Bones: No acute fracture. Upper abdomen: Cholecystectomy clips in the upper abdomen. IMPRESSION: No acute disease identified.
[2022-02-09] MEDS ORDERED: MELATONIN 3 MG TABLET PO SCH (22:45)
[2022-02-10] MEDS: LACTATED RINGERS 1,000 ML IV SCH ×2 (00:50→16:41)
[2022-02-10 07:12] VITALS: RESP 18
[2022-02-10 09:01] LABS: Basophils # (A) 0.09 X 10*3/uL (0.00-0.10); Basophils % (A) 1.1 %; Eosinophils % (A) 2.5 %; HCT 35.3 % (37.2-46.3); Immature Grans, Automated 0.3 %; Lymphocytes # (A) 1.62 X 10*3/uL (0.90-5.00); Lymphocytes % (A) 20.3 %; MCH 29.2 pg (27.0-32.0); MCV 85.9 fL (80.0-97.0); Mean Platelet Volume 10.2 fL (9.5-12.2); Monocytes # (A) 0.65 X 10*3/uL (0.20-1.00); Monocytes % (A) 8.2 %; NRBC Per 100 WBC 0 /100 WBCS (0.0-0.0); Neutrophils # (A) 5.39 X 10*3/uL (1.80-7.70); Neutrophils % (A) 67.6 %; Platelet Count 242 X 10*3/uL (140-440); RBC 4.11 X 10*6/uL (4.10-5.20); RDW 12.5 % (11.5-14.5); WBC 7.97 X 10*3/uL (4.50-10.00)
[2022-02-10 09:10] LABS: African American GFR (CKD) 113.2 (60.0-200.0); Albumin 3.8 g/dL (3.8-4.9); Albumin/Globulin Ratio 2.24 (1.60-3.17); Anion Gap 8.6 mmol/L (10.00-18.00); BUN/Creat Ratio 13.33 Ratio (12.00-20.00); Calcium 9.1 mg/dL (8.7-10.3); Carbon Dioxide 24.4 mmol/L (20.0-27.5); Globulin 1.7 g/dL (1.6-3.3); Magnesium 1.8 mg/dL (1.5-2.4); Non-African American GFR(CKD) 97.7 (60.0-200.0); Phosphorus 3.6 mg/dL (2.4-5.1); Potassium 3.7 mmol/L (3.5-5.5); Total Bilirubin 0.6 mg/dL (0.30-1.20); Total Protein 5.5 g/dL (6.2-8.2)
[2022-02-10] MEDS ORDERED: LIDOCAINE 2% INJ 20 MG/ML (2 ML VIAL) ONE (09:21)
[2022-02-10] MEDS ORDERED: PROPOFOL 10 MG/ML 20 ML VIAL IV ONE (09:21)
[2022-02-10] MEDS ORDERED: IV FLUID CONTINUATION 200 ML IV ONE (09:31)
--- NOTE | 2022-02-10 09:32 | P.OP ---
Date of Procedure: 02/10/22 Preoperative Diagnosis: Epigastric abdominal pain Postoperative Diagnosis: Antral gastritis Procedure(s) Performed: EGD Anesthesia: MAC Surgeon: Mich Garber Pathology: other (Antrum) Condition: stable Disposition: PACU Description of Procedure: The patient's placed on the endoscopy table in the lateral position. She received IV sedation. The gastroscope placed oropharynx passed in the esophagus into the stomach. Scope was placed through the pylorus. The first and second portion of the duodenum appeared normal. The scope was then brought back the antrum and this appeared mildly inflamed. A biopsies performed. The scope was then retroflexed and remainder the stomach appeared normal. The GE junction was at 47 is. The distal esophagus appeared normal. The proximal esophagus appeared normal. Scope withdrawn for patient.
[2022-02-10] MEDS: HEPARIN SODIUM,PORCINE/PF 5,000 UNIT/0.5 ML SYRINGE SQ SCH ×2 (10:03→16:42)
[2022-02-10] MEDS: PANTOPRAZOLE 40 MG/10 ML VIAL IV SCH (10:03)
[2022-02-10] MEDS: ATORVASTATIN 20 MG TAB PO SCH (10:04)
[2022-02-10] MEDS: ASPIRIN 81 MG PO SCH (10:04)
[2022-02-10 14:28] VITALS: BP 132/77; PULSE 88; TEMP 99
--- NOTE | 2022-02-10 14:57 | P.DS ---
Providers Date of admission: 02/09/22 01:42 Expected date of discharge: 02/10/22 Attending physician: Allen Morley MD Consults: 02/09/22 09:25 Consult Physician Routine Consulting Provider: Mich Garber Consult Reason/Comments: abd pain and persistent diarrhea Do you want consulting provider notified?: Yes Primary care physician: Jese Hair MD Hospital Course: Discharge Diagnosis: Epigastric pain accompanied by nausea and decreased appetite, EGD completed revealing antral gastritis. General surgery recommending patient undergo colonoscopy, patient declined bowel prep at this time and is recommended to follow up outpatient for scheduling of colonoscopy. Chronic diarrhea with history of colitis, General surgery recommending patient undergo colonoscopy, patient declined bowel prep at this time and is recommended to follow up outpatient for scheduling of colonoscopy. Acute pancreatitis, resolved with IV fluid hydration. Hospital Course: Patient is a 61-year-old female with a past medical history of GERD, cervical cancer status post hysterectomy followed by radiation and chemotherapy treatment, and gastritis. She presented to the emergency department with a chief complaint of chest pain or abdominal pain, dizziness, nausea, decreased appetite, weight loss, and uncontrolled diarrhea for many weeks (reported about 8 weeks of diarrhea). Patient underwent full evaluation in the emergency department. CBC, coags, and CMP showing no significant abnormalities. D-dimer negative at less than 0.017 and troponin negative at less than 0.0122 draws. Amylase elevated at 113 and lipase elevated at 419. EKG was completed showing normal sinus rhythm and 92 bpm with no noted T wave or ST abnormality showing no signs of acute ischemia. Patient was admitted under our services with consultation to general surgery for evaluation for possible endoscopy/colonoscopy. Patient seen and evaluated by general surgery and was recommended to undergo bowel prep for colonoscopy. Patient declined to have colonoscopy completed at this time secondary to reports that she is unable to tolerate bowel prep. Patient underwent EGD which reported to reveal antral gastritis, biopsies performed. General surgery clearing patient from their perspective for discharge and advising outpatient follow-up for colonoscopy as recommended. Morning labs unremarkable. Lipase significantly improved from 419 down to 76 and CBC and CMP showing no significant abnormalities. Vital signs stable. Patient medically stable for discharge and to follow up outpatient with PCP and general surgery. Physical exam: Vital signs reviewed and stable. General: Nontoxic, no distress and appears stated age. Derm: Skin warm and dry, normal coloration for ethnicity. Head: Atraumatic, normocephalic and symmetric. Eyes: EOMs intact, no lid lag, and anicteric sclera Mouth: no lip lesions, mucus membranes moist Cardiovascular: regular rate and rhythm with normal S1S2, no murmur, positive posterior tibial pulses bilaterally, and cap refill < 2 seconds. Lungs: Respirations even, regular, and unlabored on room air. Lungs CTA bilaterally, no rhonchi, no rales, no wheezing, and no accessory muscle usage. Abdominal: soft, bowel sounds 4 quadrants, slight tenderness to epigastric region, no guarding, no appreciable organomegaly Ext: ROM intact. No gross muscle atrophy, no edema, no contractures Neuro: Speech clear, face symmetrical and CN II-XII grossly intact with no noted focal neuro deficits Psych: Alert and oriented to person, place, time, and situation. Appropriate and pleasant affect. A total of 33 minutes of time were spent preparing this complex discharge summary. Pt was discharged on 02/10/22 at 2:37 PM. I reviewed the documentation as provided by the HERIBERTO above, who is the original author of this note. I agree with the documented assessment and plan, with the following changes: none Patient Condition at Discharge: Stable Plan - Discharge Summary New Discharge Prescriptions: Continue Cyclobenzaprine [Flexeril] 5 mg PO Q8H PRN PRN Reason: Muscle Spasm Cholestyramine (with Sugar) [Cholestyramine Packet] 4 gm PO BID Pantoprazole [Protonix] 40 mg PO BID Ondansetron [Zofran ODT] 4 mg PO AC-BID Ondansetron Odt [Zofran ODT] 8 mg PO TID PRN PRN Reason: Nausea And Vomiting Discharge Medication List Cholestyramine (with Sugar) [Cholestyramine Packet] 4 gm PO BID 02/09/22 [History] Cyclobenzaprine [Flexeril] 5 mg PO Q8H PRN 02/09/22 [History] Ondansetron Odt [Zofran ODT] 8 mg PO TID PRN 02/09/22 [History] Ondansetron [Zofran ODT] 4 mg PO AC-BID 02/09/22 [History] Pantoprazole [Protonix] 40 mg PO BID 02/09/22 [History] Follow up Appointment(s)/Referral(s): Jese Hair MD [Primary Care Provider] - 1-2 Days Mich Garber MD [STAFF PHYSICIAN] - 1 Week Patient Instructions/Handouts: Irritable Bowel Syndrome (DC), Acute Abdominal Pain (DC), Abdominal Pain (GEN) Activity/Diet/Wound Care/Special Instructions: Activity: As tolerated. Take breaks as needed. Diet: Heart healthy and carb consistent diet. Avoid salts, or foods with hidden salts such as canned or boxed foods and frozen dinners. Extra salt makes your heart work harder and traps the fluid in your body for longer. Special Instructions: Take all of your medications as directed and remember to keep all of your doctor's appointments and follow-ups as needed. You will need to follow up outpatient with general surgery, Dr. Garber for scheduling of your colonoscopy or follow up with your metal milling machine operator at [facility] as scheduled. Thank you for allowing us to participate in your care, it was truly a pleasure having you for our patient!!! Discharge Disposition: HOME SELF-CARE
[2022-02-10] MEDS ORDERED: KETOROLAC 15 MG/ML 1 ML VIAL IVP STA (15:12)
[2022-02-10] MEDS ORDERED: diphenhydrAMINE 50 MG/ML 1 ML VIAL IVP STA (15:13)
[2022-02-10] MEDS ORDERED: PROCHLORPERAZINE INJ 10 MG/2 ML VIAL IVP STA (15:16)
== END 2022-02-10 16:10 | disposition home or self-care (01) ==
LOC: EC 17:00 → 6NMEDSUR 02-09 01:42
PROVIDERS: ADMIT Internal Medicine; ATTEND Internal Medicine
DX: K29.70 Gastritis, unspecified, without bleeding (principal); K21.9 Gastro-esophageal reflux disease without esophagitis; R07.89 Other chest pain; K52.9 Noninfective gastroenteritis and colitis, unspecified; I10 Essential (primary) hypertension; G90.50 Complex regional pain syndrome I, unspecified; K85.90 Acute pancreatitis without necrosis or infection, unspecified; H93.3X9 Disorders of unspecified acoustic nerve; J30.2 Other seasonal allergic rhinitis; M85.80 Other specified disorders of bone density and structure, unspecified site; Z90.710 Acquired absence of both cervix and uterus; Z90.49 Acquired absence of other specified parts of digestive tract; Z98.890 Other specified postprocedural states; Z87.891 Personal history of nicotine dependence; Z85.41 Personal history of malignant neoplasm of cervix uteri; Z92.21 Personal history of antineoplastic chemotherapy; Z92.3 Personal history of irradiation; Z82.49 Family history of ischemic heart disease and other diseases of the circulatory system; Z80.3 Family history of malignant neoplasm of breast; Z80.8 Family history of malignant neoplasm of other organs or systems; Z79.899 Other long term (current) drug therapy; Z88.8 Allergy status to other drugs, medicaments and biological substances; Z88.1 Allergy status to other antibiotic agents; Z91.013 Allergy to seafood
CPT/HCPCS: 96372 ×2; 96374; 96375; 99285; 36415; 85379; 88305; 83880; 80061; 80053 ×2; 84443; 82150; 83690 ×2; 83735; 84100; 84484 ×2; 85025 ×2; 85610; 85730; 81003; 87045; 83630; 87046; 83036; 71046; 74176; 43239; G0378 ×2; J1200; J0780; J1885; J2704; C9113 ×2; J1644; J2001

== ENCOUNTER → 2022-04-07 | Outpatient (CLI) | payer MEDICARE ==
--- NOTE | 2022-04-07 17:34 | BD ---
EXAMINATION TYPE: Axial Bone Density DATE OF EXAM: 04/07/2022 COMPARISON: NONE CLINICAL HISTORY: 61 years year old Female. ICD-10 CODE: M81.0 Osteoporosis Height: 63.25 Weight: 123.9 FRAX RISK QUESTIONS: Alcohol (3 or more units per day): NO Family History (Parent hip fracture): MOTHER Glucocorticoids (More than 3mos): NO History of Fracture in Adulthood: NO Secondary Osteoporosis: 1. Type 1 Diabetes: NO 2. Hyperthyroidism: NO 3. Menopause before 45: YES 4. Malnutrition: NO 5. Chronic liver disease: NO Rheumatoid Arthritis: NO Current Tobacco Use: NO RISK FACTORS HISTORY OF: Hip Fracture (Right/Left): NO Spine Fracture: NO History of Wrist Fracture: NO Surgery to Spine/Hip(right/left)/Wrist (right/left): NO Family History of Osteoporosis: MOTHER Active: YES Diet low in dairy products/other sources of calcium: YES Postmenopausal woman: YES Take estrogen and/or progesterone medications: NO Lost more than 2 inches in height since high school: NO Frequent falls: NO Poor Health: NO Hyperparathyroidism: NO Adrenal Insufficiency: NO MEDICATIONS: Prednisone or other steroids: NO Thyroid Medications: NO Osteoporosis Medications: NO Additional Medications: NONE EXAM MEASUREMENTS: Bone mineral densitometry was performed using the [employer] System. Bone mineral density as measured about the Lumbar spine is: ----- L1-L4(G/cm2): 0.899 T Score Values are as follows: ----- L1: -2.2 ----- L2: -2.6 ----- L3: -2.3 ----- L4: -2.4 ----- L1-L4: -2.3 BASELINE STUDY Bone mineral density about the R hip (g/cm2): 0.751 Bone mineral density about the L hip (g/cm2): 0.718 T Score values are as follows: -----R Neck: -2.1 -----L Neck: -2.3 -----R Total: -1.9 -----L Total: -2.1 BASELINE STUDY FRAX%s: The graph provided illustrates a 19.8% chance for a major osteoporotic fx and a 2.0% chance f or the hips probability for fx in 10 years time. IMPRESSION: Osteopenia (T Score between -2.5 and -1). Note that measurements are bordering on osteoporosis in the lumbar spine. There is slightly increased risk of fracture and the patient may be considered for treatment. Re-Screen 2-5 years. NOTE: T-SCORE=SD OF THE YOUNG ADULT MEAN.
--- NOTE | 2022-04-08 07:54 | MM ---
Reason for Exam: Screening (asymptomatic). Last mammogram was performed 1 year(s) and 4 month(s) ago. Patient History: Menarche at age 12. Patient has no children. Hysterectomy at age 28. Postmenopausal. Other cancer, age 30. Estrogen, from age 30 until age 51. Maternal grandmother had breast cancer, age 50. Risk Values: [place] 5 year model risk: 1.7%. NCI Lifetime model risk: 7.7%. Prior Study Comparison: 12/28/2016 Bilateral Screening Mammogram, [facility]. 05/08/2019 Bilateral Diagnostic Mammogram, [facility]. 12/07/2020 Bilateral Screening Mammogram, [facility]. Tissue Density: The breast tissue is heterogeneously dense. This may lower the sensitivity of mammography. Findings: Analyzed By CAD. There is no suspicious group of microcalcifications or new suspicious mass in either breast. Overall Assessment: Negative, BI-RAD 1 Management: Screening Mammogram of both breasts in 1 year. A clinical breast exam by your physician is recommended on an annual basis and results should be correlated with mammographic findings. [facility] will attempt to contact patient to return for supplemental views and ultrasound if indicated. Electronically signed and approved by: Nicola Rondon DO
== END | disposition home or self-care (01) ==
LOC: RADMAMWWP 07:31
PROVIDERS: ATTEND Internal Medicine
DX: Z12.31 Encounter for screening mammogram for malignant neoplasm of breast (principal); Z13.820 Encounter for screening for osteoporosis; M81.0 Age-related osteoporosis without current pathological fracture; Z78.0 Asymptomatic menopausal state; Z80.3 Family history of malignant neoplasm of breast
CPT/HCPCS: 77063; 77067; 77080

== ENCOUNTER → 2022-04-18 | Outpatient (CLI) | payer MEDICARE ==
[2022-04-18 14:21] LABS: Basophils % (A) 1.5 %; Eosinophils # (A) 0.43 X 10*3/uL (0.04-0.35); Eosinophils % (A) 6.3 %; HCT 41.1 % (37.2-46.3); HGB 13.3 g/dL (12.0-15.0); Immature Grans, Automated 0.3 %; Lymphocytes # (A) 1.81 X 10*3/uL (0.90-5.00); Lymphocytes % (A) 26.5 %; MCH 29.4 pg (27.0-32.0); MCHC 32.4 g/dL (32.0-37.0); MCV 90.9 fL (80.0-97.0); Mean Platelet Volume 9.9 fL (9.5-12.2); Monocytes # (A) 0.54 X 10*3/uL (0.20-1.00); Monocytes % (A) 7.9 %; NRBC Per 100 WBC 0 /100 WBCS (0.0-0.0); Neutrophils # (A) 3.94 X 10*3/uL (1.80-7.70); Neutrophils % (A) 57.5 %; Platelet Count 325 X 10*3/uL (140-440); RBC 4.52 X 10*6/uL (4.10-5.20); RDW 12.5 % (11.5-14.5); WBC 6.84 X 10*3/uL (4.50-10.00)
[2022-04-18 15:28] LABS: ALT 20 U/L (8-44); AST 18 U/L (13-35); Albumin 4.6 g/dL (3.8-4.9); Albumin/Globulin Ratio 2.27 (1.60-3.17); Alkaline Phosphatase 78 U/L (41-126); BUN/Creat Ratio 27.06 Ratio (12.00-20.00); Calcium 9.4 mg/dL (8.7-10.3); Carbon Dioxide 25.5 mmol/L (20.0-27.5); Chloride 105 mmol/L (96-109); Chol/HDL Ratio 2.66 Ratio; Glucose 95 mg/dL (70-110); LDL Cholesterol,Calculated 118.9 mg/dL (0.0-131.0); Potassium 4.4 mmol/L (3.5-5.5); Rheumatoid Factor, Qnt <10 IU/mL (0-15); Sodium 141 mmol/L (135-145); Total Protein 6.6 g/dL (6.2-8.2)
[2022-04-18 16:42] LABS: Erythrocyte Sedimentation Rate 5 mm/Hr (0-30)
[2022-04-18 18:08] LABS: Anti-DNA, DS unit <1.0 IU/mL; Cyclic Citrull Pep IgG Unit <0.5 U/mL; Cyclic Citrullinated Pep IgG NEGATIVE (NEGATIVE); DNA Double-Stranded NEGATIVE (NEGATIVE); Scleroderma SC-70 Ab <0.2 AI
== END | disposition home or self-care (01) ==
LOC: LABWHC1 08:25
PROVIDERS: ATTEND Internal Medicine
DX: Z00.00 Encounter for general adult medical examination without abnormal findings (principal); M85.80 Other specified disorders of bone density and structure, unspecified site; G90.50 Complex regional pain syndrome I, unspecified
CPT/HCPCS: 36415; 80053; 80061; 82306; 82607; 82746; 85025; 85652; 86038; 86200; 86225; 86235; 86431

== ENCOUNTER → 2022-06-17 | Outpatient (CLI) | payer MEDICARE ==
--- NOTE | 2022-06-17 09:44 | MR ---
EXAMINATION TYPE: MR lumbar spine wo con DATE OF EXAM: 06/17/2022 8:32 AM COMPARISON: CT abdomen pelvis 02/09/2022. CLINICAL INDICATION:Female, 61 years old with history of M54.50 low back pain TECHNIQUE: Multi planar, multi sequence imaging was performed utilizing: T1-weighted, T2-weighted, a nd turbo inversion recovery imaging of the lumbar spine. IV Contrast: None. FINDINGS: Alignment: The lumbar vertebral bodies have preserved heights and alignment. Cord: The conus medullaris and the distal spinal cord appear unremarkable with regards to their signa l intensity and morphology. Bones/Discs: Scattered disc degeneration changes with superior endplate Modic changes of L3 and L1. M inimal osteophyte formation noted. Bone signal is grossly maintained. No abnormal bony edema seen on inversion caliber sequences. T12-L1: No evidence of significant spinal canal stenosis or neural foraminal stenosis. L1-L2: No evidence of significant spinal canal stenosis or neural foraminal stenosis. L2-L3: No evidence of significant spinal canal stenosis or neural foraminal stenosis. L3-L4: No evidence of significant spinal canal stenosis or neural foraminal stenosis. L4-L5: No evidence of significant spinal canal stenosis or neural foraminal stenosis. Trace bilateral facet joint effusions. L5-S1: The disc is rounded posterior morphology without significant spinal canal stenosis. Facet join t arthropathy with mild neural foraminal stenosis. Trace bilateral facet joint effusions. IMPRESSION: 1. No definitive evidence of disc herniation or significant spinal canal stenosis. 2. Minimal disc degeneration with associated osteoarthritic changes.
== END | disposition home or self-care (01) ==
LOC: RADMRIMAIN 07:21
PROVIDERS: ATTEND Internal Medicine
DX: M51.36 Other intervertebral disc degeneration, lumbar region (principal); M47.816 Spondylosis without myelopathy or radiculopathy, lumbar region
CPT/HCPCS: 72148

== ENCOUNTER → 2022-10-27 | Outpatient (CLI) | payer MEDICARE ==
--- NOTE | 2022-10-28 11:30 | CA ---
Transthoracic Echo Report Name: Aylin Celeste Age: 62 Gender: F : 1960 Exam Date: 10/27/2022 13:56 Exam Location: [facility] Ht (in): 64 Wt (lb): 147 Ordering Physician: Jese Hair MD Attending/Referring Phys: Parker Shiloh Godinez RDCS Procedure CPT: Indications: I87.2 VENOUS INSUFFICIENCY (CHRONIC) (PERIPHERAL) Cardiac Hx: Technical Quality: Fair Contrast 1: Total Dose (mL): Contrast 2: Total Dose (mL): MEASUREMENTS (Male / Female) Normal Values 2D ECHO LV Diastolic Diameter PLAX 3.1 cm 4.2 - 5.9 / 3.9 - 5.3 cm LV Systolic Diameter PLAX 2.1 cm IVS Diastolic Thickness 1.2 cm 0.6 - 1.0 / 0.6 - 0.9 cm LVPW Diastolic Thickness 1.2 cm 0.6 - 1.0 / 0.6 - 0.9 cm LV Relative Wall Thickness 0.8 RV Internal Dim ED PLAX 3.3 cm LA Volume 50.0 cm??? 18 - 58 / 22 - 52 cm??? M-MODE Aortic Root Diameter MM 2.5 cm LA Systolic Diameter MM 3.9 cm LA Ao Ratio MM 1.6 AV Cusp Separation MM 1.5 cm DOPPLER AV Peak Velocity 152.6 cm/s AV Peak Gradient 9.3 mmHg AV Mean Velocity 98.9 cm/s AV Mean Gradient 4.5 mmHg AV Velocity Time Integral 25.2 cm LVOT Peak Velocity 118.9 cm/s LVOT Peak Gradient 5.7 mmHg LVOT Velocity Time Integral 26.9 cm MV Area PHT 2.7 cm??? Mitral E Point Velocity 63.2 cm/s Mitral A Point Velocity 76.2 cm/s Mitral E to A Ratio 0.8 MV Deceleration Time 280.3 ms MV E' Velocity 8.7 cm/s Mitral E to MV E' Ratio 7.3 TR Peak Velocity 164.9 cm/s TR Peak Gradient 10.9 mmHg Right Ventricular Systolic Press 15.9 mmHg FINDINGS Left Ventricle Mildly increased left ventricular wall thickness. Left ventricular cavity size normal. Normal left ventricular systolic function with no obvious regional wall motion abnormalities. Left ventricular ejection fraction is estimated at 55-60 %. Right Ventricle Normal right ventricular size and function. Right ventricular systolic pressure within normal limits. Right Atrium Normal right atrial size. Left Atrium Normal left atrial size. Mitral Valve Structurally normal mitral valve. Mild mitral regurgitation. Aortic Valve No aortic valve stenosis or regurgitation. Trileaflet aortic valve. Tricuspid Valve Structurally normal tricuspid valve. Mild tricuspid regurgitation. Pulmonic Valve Structurally normal pulmonic valve. Trace pulmonic regurgitation. Pericardium No pericardial effusion. Aorta Normal size aortic root and proximal ascending aorta. CONCLUSIONS Preserved LV systolic function Previewed by: Dr. Danie Cerda MD (Electronically Signed) Final Date: 28 Oct 2022 11:29
== END | disposition home or self-care (01) ==
LOC: RADECHMAIN 13:46
PROVIDERS: ATTEND Internal Medicine
DX: I08.1 Rheumatic disorders of both mitral and tricuspid valves (principal); I87.2 Venous insufficiency (chronic) (peripheral)
CPT/HCPCS: 93306

== ENCOUNTER → 2022-11-09 | Outpatient (CLI) | payer MEDICARE ==
--- NOTE | 2022-11-09 09:21 | XR ---
EXAMINATION TYPE: XR chest 2V DATE OF EXAM: 11/09/2022 9:11 AM COMPARISON: Chest radiographs from 02/08/2022 TECHNIQUE: XR chest 2V Frontal and lateral views of the chest. CLINICAL INDICATION:Female, 62 years old with history of J45.909; FINDINGS: Lungs/Pleura: There is no evidence of pleural effusion, focal consolidation, or pneumothorax. Pulmonary vascularity: Unremarkable. Heart/mediastinum: Cardiomediastinal silhouette is unremarkable. Atherosclerotic calcifications are seen in the aorta. Musculoskeletal: No acute osseous pathology. Other findings: Cholecystectomy clips in the right upper quadrant. IMPRESSION: No acute cardiopulmonary disease/process.
== END | disposition home or self-care (01) ==
LOC: LABWHC1 08:57
PROVIDERS: ATTEND Internal Medicine
DX: J45.909 Unspecified asthma, uncomplicated (principal)
CPT/HCPCS: 71046

== ENCOUNTER → 2023-01-04 | Outpatient (CLI) | payer MEDICARE ==
--- NOTE | 2023-01-04 08:45 | XR ---
EXAMINATION TYPE: XR chest 2V DATE OF EXAM: 01/04/2023 8:38 AM COMPARISON: Chest radiographs from 11/09/2022 TECHNIQUE: XR chest 2V Frontal and lateral views of the chest. CLINICAL INDICATION:Female, 62 years old with history of J45.909 UNSPECIFIED ASTHMA, UNCOMPLICATED; FINDINGS: Lungs/Pleura: There is no evidence of pleural effusion, focal consolidation, or pneumothorax. Pulmonary vascularity: Unremarkable. Heart/mediastinum: Cardiomediastinal silhouette is unremarkable. Musculoskeletal: No acute osseous pathology. Other: Surgical clips in the upper abdomen. IMPRESSION: No acute cardiopulmonary disease/process. No significant change from prior examination.
== END | disposition home or self-care (01) ==
LOC: RADXRMAIN 08:21
PROVIDERS: ATTEND Internal Medicine
DX: J45.909 Unspecified asthma, uncomplicated (principal)
CPT/HCPCS: 71046

== ENCOUNTER → 2023-01-10 | Outpatient (CLI) | payer MEDICARE ==
--- NOTE | 2023-01-10 08:34 | CT ---
EXAMINATION TYPE: CT sinus wo con CT DLP: 587.5 mGycm, Automated exposure control for dose reduction was used. DATE OF EXAM: 01/10/2023 8:18 AM COMPARISON: None. CLINICAL INDICATION:Female, 62 years old with history of R09.82 POSTNASAL DRIP; Sinusitis x8 months. TECHNIQUE: Multiple thin axial images were obtained through the paranasal sinuses without the use of IV contrast. Additional coronal and sagittal reformatted images were submitted for evaluation. Contrast used: none Oral contrast used: none FINDINGS: Frontal sinuses: Hypoplastic bilaterally with aeration. Frontal Recess: Clear Maxillary Sinuses: Normally developed and aerated. Maxillary Infundibula([facility]): Mild mucosal thickening narrowing, No Elisabeth cells identified. Ethmoid sinuses: Normally developed and aerated. Ethmoidal notch: Unprotected bilateral anterior ethm oidal arteries. Sphenoid sinuses: Normally developed and aerated. There is sellar sphenoid sinus pneumatization witho ut evidence of dehiscence. No dehiscence of carotid canal. No evidence of optic nerve dehiscence wit hin the sphenoid sinus. No evidence of Onodi cells. Sphenoethmoidal recesses: Clear. Nasal septum: Within normal limits.. Nasal Turbinates: Within normal limits. Mastoid air cells & middle ears: The air cells are clear. The middle ears are grossly unremarkable. Modified Soft tissues & Brain: Partially seen without gross abnormality. Globes are intact. Other: Cribriform plate demonstrates asymmetric Keros classification type 3 cribriform plate on the right an d type II on the left. No evidence of bony dehiscence of skull base. Lamina papyracea is intact without evidence of remote orbital fracture or orbital prolapse into the e thmoid sinus. IMPRESSION: 1. No significant mucosal sinus disease. 2. The frontonasal and sphenoethmoidal recesses are patent. Mild narrowing of the ostiomeatal units b ilaterally.
== END | disposition home or self-care (01) ==
LOC: RADCTMAIN 08:02
PROVIDERS: ATTEND Otolaryngology
DX: J34.89 Other specified disorders of nose and nasal sinuses (principal); J32.9 Chronic sinusitis, unspecified; R09.82 Postnasal drip
CPT/HCPCS: 70486

== ENCOUNTER → 2023-04-12 | Outpatient (CLI) | payer MEDICARE ==
--- NOTE | 2023-04-12 11:53 | XR ---
EXAMINATION TYPE: XR chest 2V DATE OF EXAM: 04/12/2023 COMPARISON: 01/04/2023 HISTORY: 62-year-old female E05.90, cough and congestion TECHNIQUE: Frontal and lateral views FINDINGS: The cardiomediastinal silhouette, aorta, and pulmonary vasculature are within normal limits. Some str kevin atelectasis at the right lower lung. Otherwise, lungs and pleural spaces are clear. Cholecystect steve clips. IMPRESSION: No acute cardiopulmonary process.
== END | disposition home or self-care (01) ==
LOC: RADXRMAIN 09:20
PROVIDERS: ATTEND Internal Medicine
DX: E05.90 Thyrotoxicosis, unspecified without thyrotoxic crisis or storm (principal)
CPT/HCPCS: 71046

== ENCOUNTER → 2023-05-12 | Outpatient (CLI) | payer MEDICARE ==
--- NOTE | 2023-05-16 08:32 | MM ---
Reason for Exam: Screening (asymptomatic). Last mammogram was performed 1 year(s) and 1 month(s) ago. Patient History: Menarche at age 12. Patient has no children. Hysterectomy at age 28. Postmenopausal. Other cancer, age 30. Estrogen, from age 30 until age 51. Maternal grandmother had breast cancer, age 50. Risk Values: Xena 5 year model risk: 1.7%. NCI Lifetime model risk: 7.4%. Prior Study Comparison: 05/08/2019 Bilateral Diagnostic Mammogram, [facility]. 12/07/2020 Bilateral Screening Mammogram, [facility]. 04/07/2022 Bilateral MG 3D screening mammo w/cad, [facility]. Tissue Density: The breast tissue is heterogeneously dense. This may lower the sensitivity of mammography. Findings: Analyzed By CAD. Pattern appears symmetrical and stable. No significant interval change is evident. No suspicious groups of microcalcifications, spiculated or lobular masses, architectural distortion or other secondary signs of malignancy are mammographically apparent. Overall Assessment: Benign, BI-RAD 2 Management: Screening Mammogram of both breasts in 1 year. A negative mammogram report should not preclude additional follow up of suspicious palpable abnormalities. Patient should continue monthly self breast exam. A clinical breast exam by your physician is recommended on an annual basis and results should be correlated with mammographic findings. Electronically signed and approved by: Ahmet Swann D.O. Radiologis
== END | disposition home or self-care (01) ==
LOC: RADMAMWWP 09:23
PROVIDERS: ATTEND Internal Medicine
DX: Z12.31 Encounter for screening mammogram for malignant neoplasm of breast (principal); Z78.0 Asymptomatic menopausal state; Z80.3 Family history of malignant neoplasm of breast
CPT/HCPCS: 77063; 77067

== ENCOUNTER → 2023-05-23 | Outpatient (CLI) | payer MEDICARE | LOC: CPPFTMAIN 07:06 | PROVIDERS: ATTEND Internal Medicine | DX: J45.909 Unspecified asthma, uncomplicated (principal); F17.200 Nicotine dependence, unspecified, uncomplicated; Z91.013 Allergy to seafood; Z88.1 Allergy status to other antibiotic agents; Z88.8 Allergy status to other drugs, medicaments and biological substances | CPT/HCPCS: 94060; 94726; 94729 ==

== ENCOUNTER → 2023-07-12 | Outpatient (CLI) | payer MEDICARE ==
[2023-07-12 13:34] LABS: Appearance,Urine Clear (Clear); Bilirubin,Urine Negative (Negative); Blood,Urine Negative (Negative); Color,Urine Light Yellow; Glucose,Urine (UA) Negative (Negative); Ketones,Urine Negative (Negative); Leukocyte Esterase,Urine Negative (Negative); Nitrite,Urine Negative (Negative); PH, Urine 5.5 (5.0-8.0); Protein,Urine Negative (Negative); Specific Gravity,Urine 1.015 (1.001-1.035); Urobilinogen,Urine <2.0 mg/dL (<2.0)
[2023-07-13 03:10] LABS: T4, Free (Free Thyroxine) 1.21 ng/dL (0.80-1.80)
== END | disposition home or self-care (01) ==
LOC: LABWHC1 12:54
PROVIDERS: ATTEND Ophthalmology
DX: G70.00 Myasthenia gravis without (acute) exacerbation (principal); R82.90 Unspecified abnormal findings in urine
CPT/HCPCS: 36415; 81003; 84439; 84443; 85652

== ENCOUNTER → 2023-11-23 | Outpatient (CLI) | payer MEDICARE ==
--- NOTE | 2023-11-23 09:29 | XR ---
EXAMINATION TYPE: XR chest 2V DATE OF EXAM: 11/23/2023 COMPARISON: NONE HISTORY: Chest pain TECHNIQUE: Frontal and lateral views of the chest are obtained. FINDINGS: There is no focal air space opacity. No evidence for pneumothorax. No pleural effusion. The cardiac silhouette size is within normal limits. The osseous structures are grossly intact. IMPRESSION: 1. No acute cardiopulmonary process.
== END | disposition home or self-care (01) ==
LOC: RADXRMAIN 08:59
PROVIDERS: ATTEND Internal Medicine
DX: R05.1 Acute cough (principal)
CPT/HCPCS: 71046

== ENCOUNTER → 2024-03-14 | Outpatient (CLI) | payer MEDICARE ==
--- NOTE | 2024-03-14 12:28 | US ---
EXAMINATION TYPE: US abdomen complete DATE OF EXAM: 03/14/2024 COMPARISON: CT 2021, US 2017 CLINICAL INDICATION: Female, 63 years old with history of K58.2 IBS; TECHNIQUE: Grayscale and color Doppler imaging of the abdomen was performed. FINDINGS: EXAM MEASUREMENTS: Liver Length: 15.5 cm CBD: 0.9 cm Spleen: 10.0 cm Right Kidney: 9.3 x 3.9 x 4.4 cm Left Kidney: 10.1 x 5.0 x 4.0 cm Pancreas: obscured by overlying midline bowel gas Liver: scanned intercostally, visualized portions wnl Gallbladder: surgically absent CBD: visualized portions wnl, limited by overlying bowel gas Spleen: visualized portions wnl, limited by overlying bowel gas Right Kidney: wnl Left Kidney: wnl Upper IVC: wnl Abd Aorta: proximal portion obscured by overlying midline bowel gas, mid and distal portions wnl The liver is homogenous. The intrahepatic portion of the IVC is within normal limits. The mid and di stal portions of the abdominal aorta are within normal limits. The proximal portion is obscured by ov erlying bowel gas. Gallbladder is surgically absent. Common bile duct is unremarkable within cholecy stectomy changes. The visualized portions of the pancreas are homogenous. The spleen is unremarkabl e. Kidneys are symmetric and free of hydronephrosis. No renal lesions are seen. IMPRESSION: 1. No ultrasound evidence for an acute process. 2. Postcholecystectomy changes. [facility], , 03/14/2024 12:26 PM
== END | disposition home or self-care (01) ==
LOC: RADUSWWP 08:08
PROVIDERS: ATTEND Internal Medicine
CPT/HCPCS: 76700

== ENCOUNTER → 2024-03-18 | Outpatient (CLI) | payer MEDICARE ==
--- NOTE | 2024-03-18 11:19 | XR ---
EXAMINATION TYPE: XR knee complete RT DATE OF EXAM: 03/18/2024 10:43 AM CLINICAL INDICATION: Female, 63 years old with history of M25.561 R knee pain; [facility] COMPARISON: None. TECHNIQUE: XR knee complete RT; examined in Frontal, lateral and oblique projections. FINDINGS: No evidence of any acute osseous pathology, soft tissue swelling, or joint effusion is no mela. Tricompartmental osteophyte formation involving the femoral condyles, tibial plateau and patella . Mild joint space narrowing. A fabella is present. IMPRESSION: 1. No acute osseous pathology. 2. Mild tricompartmental osteoarthritic changes. [facility], , 03/18/2024 11:16 AM
== END | disposition home or self-care (01) ==
LOC: RADXRMAIN 10:10
PROVIDERS: ATTEND Internal Medicine
DX: M17.11 Unilateral primary osteoarthritis, right knee (principal)

== ENCOUNTER → 2024-04-09 | Outpatient (CLI) | payer MEDICARE ==
--- NOTE | 2024-04-10 22:27 | MR ---
EXAMINATION TYPE: MR knee RT wo con DATE OF EXAM: 04/09/2024 COMPARISON: Right knee x-ray March 18, 2024 HISTORY: Right knee pain, no known injury TECHNIQUE: Multiplanar, multisequence images of the knee is performed without IV contrast. FINDINGS: MEDIAL MENISCUS: Medial extrusion medial meniscus on coronal images. Abnormal signal central body int o the posterior horn oblique signal extending to inferior articular surface. LATERAL MENISCUS: Anterior and posterior horns are intact without tear. CRUCIATE LIGAMENTS: The anterior and posterior cruciate ligaments are intact and unremarkable. COLLATERAL LIGAMENTS: The medial collateral ligament and lateral collateral ligament complex are inta ct and unremarkable. EXTENSOR MECHANISM: Visualized quadriceps and patellar tendons are intact. EFFUSION: Small size suprapatellar joint effusion. POPLITEAL CYST: Small to moderate size popliteal/hannah cyst measuring 4.4 cm long axis sagittal image 11. TRICOMPARTMENT SPACES: Mild to moderate tricompartment joint space loss. No significant spurring. CARTILAGE: Chondromalacia patella with areas of significant including full-thickness cartilaginous lo ss in the posterior patellar pole. BONE MARROW SIGNAL: No focal abnormal marrow signal is appreciated. OTHER: No additional significant abnormality is appreciated. IMPRESSION: 1. Full-thickness tear posterior horn medial meniscus. 2. A moderately prominent degenerative changes are present as detailed above. 3. [id number] size popliteal cyst. 4. Small size suprapatellar joint effusion. [facility], , 04/10/2024 10:24 PM
== END | disposition home or self-care (01) ==
LOC: RADMRIMAIN 19:15
PROVIDERS: ATTEND Orthopaedic Surgery
DX: M23.321 Other meniscus derangements, posterior horn of medial meniscus, right knee (principal); M17.11 Unilateral primary osteoarthritis, right knee; M25.461 Effusion, right knee

== ENCOUNTER → 2024-07-02 | Outpatient (CLI) | payer MEDICARE ==
--- NOTE | 2024-07-02 08:40 | MM ---
Reason for Exam: Screening (asymptomatic). Last mammogram was performed 1 year(s) and 1 month(s) ago. Patient History: Menarche at age 12. Patient has no children. Hysterectomy at age 28. Postmenopausal. Other cancer, age 30. Estrogen, from age 30 until age 51. Maternal grandmother had breast cancer, age 50. Risk Values: Xena 5 year model risk: 1.8%. NCI Lifetime model risk: 7.2%. Prior Study Comparison: 12/07/2020 Bilateral Screening Mammogram, [facility]. 04/07/2022 Bilateral MG 3D screening mammo w/cad, [facility]. 05/12/2023 Bilateral MG 3D screening mammo w/cad, [facility]. Tissue Density: The breasts are heterogeneously dense, which may obscure small masses. Findings: Analyzed By CAD. Right breast: There is no suspicious group of microcalcifications or new suspicious mass. Left breast: There is no suspicious group of microcalcifications or new suspicious mass. Overall Assessment: Negative, BI-RAD 1 Management: Screening Mammogram of both breasts in [address] [facility] will attempt to contact patient to return for supplemental views and ultrasound if indicated. Patient should continue monthly self-breast exams. A clinical breast exam by your physician is recommended on an annual basis. This exam should not preclude additional follow-up of suspicious palpable abnormalities. Note on Xena scores and lifetime risk: 1. A Xena score greater than 3% is considered moderate risk. If this is the case, consider specialist referral to assess eligibility for a risk reducing agent. 2. If overall lifetime risk for the development of breast cancer is 20% or higher, the patient may qualify for future screening with alternating mammogram and breast MRI. [facility], , 07/02/2024 8:37 AM. Electronically signed and approved by: Nicola Rondon DO
--- NOTE | 2024-07-02 08:47 | BD ---
EXAMINATION TYPE: Axial Bone Density DATE OF EXAM: 07/02/2024 CLINICAL HISTORY: 63 years old Female. ICD-10 CODE: M85.80 OSTEOPENIA , Additional History: Height: 5 ft 4 in Weight: 169 FRAX RISK QUESTIONS: Alcohol (3 or more units per day): no Family History (Parent hip fracture): yes Glucocorticoids (More than 3mos): no (Ex: prednisone, prednisolone, methylprednisolone, dexamethasone, and hydrocortisone). History of Fracture in Adulthood: no Secondary Osteoporosis: 1. Type 1 Diabetes: no 2. Hyperthyroidism: no 3. Menopause before 45: yes 4. Malnutrition: no 5. Chronic liver disease: no Rheumatoid Arthritis: no Current Tobacco Use: no RISK FACTORS HISTORY OF: Surgery to Spine/Hip(right/left)/Wrist (right/left): no MEDICATIONS: Thyroid Medications: none Osteoporosis Medications: none EXAM MEASUREMENTS: Bone mineral densitometry was performed using the [employer]. Bone mineral density as measured about the Lumbar spine is: ----- L1-L4(G/cm2): 0.931 T Score Values are as follows: ----- L1: -2.1 ----- L2: -2.2 ----- L3: -2.4 ----- L4: -1.9 ----- L1-L4: -2.1 Z Score Values are as follows: ----- L1: -0.9 ----- L2: -1.0 ----- L3: -1.2 ----- L4: -0.7 ----- L1-L4: -0.9 Bone mineral density has: increased 3.6 % since study of: 2021 Bone mineral density about the R hip (g/cm2): 0.783 Bone mineral density about the L hip (g/cm2): 0.750 T Score values are as follows: -----R Neck: -1.8 -----L Neck: -2.1 -----R Total: -1.7 -----L Total: -1.7 Z Score values are as follows: -----R Neck: -0.6 -----L Neck: -0.9 -----R Total: -0.8 -----L Total: -0.8 Bone mineral density has: increased 5.6 % since study of: 2021 FRAX%s: The graph provided illustrates a 20.2 % chance for a major osteoporotic fx and a 1.8 % chance for the hips probability for fx in 10 years time. IMPRESSION: Osteopenia (T Score between -2.5 and -1). There is slightly increased risk of fracture and the patient may be considered for treatment. Re-Screen 2-5 years. NOTE: T-SCORE=SD OF THE YOUNG ADULT MEAN. [facility], , 07/02/2024 8:45 AM
== END | disposition home or self-care (01) ==
LOC: RADMAMWWP 06:52
PROVIDERS: ATTEND Internal Medicine
DX: Z12.31 Encounter for screening mammogram for malignant neoplasm of breast (principal); R92.333 Mammographic heterogeneous density, bilateral breasts; M85.89 Other specified disorders of bone density and structure, multiple sites; Z78.0 Asymptomatic menopausal state; Z80.3 Family history of malignant neoplasm of breast
CPT/HCPCS: 77063; 77067; 77080

== ENCOUNTER → 2024-11-13 | Outpatient (CLI) | payer MEDICARE ==
--- NOTE | 2024-11-13 14:38 | US ---
EXAMINATION TYPE: US kidneys/renal and bladder DATE OF EXAM: 11/13/2024 COMPARISON: 03/14/2024 CLINICAL INDICATION: Female, 64 years old with history of R82.90 BAD ODOR OF URINE; uti like symptoms TECHNIQUE: Grayscale imaging of the bilateral kidneys and urinary bladder: FINDINGS: EXAM MEASUREMENTS: Right Kidney: 9.8x4.8x4.8 cm Left Kidney: 10.0x5.0x4.2 cm slightly limited due to overlying bowel Right Kidney: wnl Left Kidney: wnl Bladder: wnl Bilateral Jets seen: very limited, not well visualized IMPRESSION: No evidence for acute process. No obstructive uropathy or renal calculus. [facility], , 11/13/2024 2:36 PM
== END | disposition home or self-care (01) ==
LOC: RADUSWWP 13:54
PROVIDERS: ATTEND Internal Medicine
DX: R82.90 Unspecified abnormal findings in urine (principal)
CPT/HCPCS: 76770

== ENCOUNTER 2024-11-22 09:32 | Emergency (ER) | payer MEDICARE ==
--- NOTE | 2024-11-22 10:00 | ED ---
General Adult HPI - General Chief complaint: Chest Pain Stated complaint: R leg pain Time Seen by Provider: 11/22/24 09:42 Source: patient Mode of arrival: wheelchair - History of Present Illness Initial comments: Dictation was produced using [employer] dictation software. please excuse any grammatical, word or spelling errors. Chief Complaint: 64-year-old male sent in by primary care physician for concerns of PE History of Present Illness: Patient 64-year-old female she had recent arthroscopic surgery. Patient completed physical therapy. Will last 1 to 2 days began complaining of some lateral and posterior right knee pain. Went to see primary care doctor today told her to come to the ER for concerns of DVT and PE. She has had some mild chest pain. She has had a chronic cough seems to be improved with inhaler. Patient states that the pain is substernal worse with cough and deep inspiration. The ROS documented in this emergency department record has been reviewed and confirmed by me. Those systems with pertinent positive or negative responses have been documented in the HPI. All other systems are other negative and/or noncontributory. - Related Data Home Medications Medication Instructions Recorded Confirmed Cyclobenzaprine [Flexeril] 5 mg PO Q8H PRN 02/09/22 02/16/22 Pantoprazole [Protonix] 40 mg PO BID 02/09/22 02/16/22 Allergies Allergy/AdvReac Type Severity Reaction Status Date / Time nitroglycerin Allergy Severe "HEART Verified 02/16/22 12:42 STOPPED" shellfish derived [Shellfish] Allergy Anaphylaxis Verified 02/16/22 12:42 erythromycin base AdvReac Abdominal Verified 02/16/22 12:42 Pain pregabalin [From Lyrica] AdvReac weakness Verified 02/16/22 12:42 Review of Systems ROS Statement: Those systems with pertinent positive or pertinent negative responses have been documented in the HPI. ROS Other: All systems not noted in ROS Statement are negative. Past Medical History Past Medical History: Cancer, Hypertension Additional Past Medical History / Comment(s): IRREGULAR HEART BEAT, COMPLEX RE GIONAL PAIN SYNDROME, RSD, whiplash, vestibular disease, digestive disorder. Seasonal allergies, osteopenia. Cervical cancer status post ERVIN, radiation and chemotherapy in 1989. RECENT INPT FOR CP-TESTS SHOWED COLITIS PER PT History of Any Multi-Drug Resistant Organisms: None Reported Past Surgical History: Cholecystectomy, Hysterectomy Additional Past Surgical History / Comment(s): RIGHT SHOULDER, ERVIN 1989. Feeding tube placement in 2014-REMOVED. EGD Past Anesthesia/Blood Transfusion Reactions: No Reported Reaction Past Psychological History: No Psychological Hx Reported Smoking Status: Former smoker Past Alcohol Use History: None Reported Past Drug Use History: None Reported - Past Family History Father Family Medical History: Myocardial Infarction ([place]) Mother Family Medical History: Cancer Additional Family Medical History / Comment(s): Melanoma. Maternal grandmother had breast cancer. General Exam - General Exam Comments Initial Comments: PHYSICAL EXAM: General Impression: Alert and oriented x3, not in acute distress HEENT: Normocephalic atraumatic, extra-ocular movements intact, pupils equal and reactive to light bilaterally, mucous membranes moist. Cardiovascular: Heart regular rate and rhythm Chest: Able to complete full sentences, no retractions, no tachypnea Abdomen: abdomen soft, non-tender, non-distended, no organomegaly Musculoskeletal: Pulses present and equal in all extremities, no peripheral edema Motor: no focal deficits noted Neurological: CN II-XII grossly intact, no focal motor or sensory deficits noted Skin: Intact with no visualized rashes Psych: Normal affect and mood Course Vital Signs 11/22/24 11/22/24 09:34 11:40 Temperature 98.2 F 97.3 F L Pulse Rate 66 88 Respiratory 20 22 Rate Blood Pressure 180/82 164/82 O2 Sat by Pulse 98 100 Oximetry EKG Findings - EKG Comments: EKG Findings:: My EKG interpretation: Ventricular rate 63, sinus rhythm, ND 149, cures 91, QTc 396. No ND prolongation, no QTC prolongation, no ST or T-wave changes noted. Overall, this EKG is unremarkable Medical Decision Making - Medical Decision Making Was pt. sent in by a medical professional or institution (, PA, CABLE INSTALLER REPAIRER HELPER, urgent care, hospital, or skilled nursing...) When possible be specific @ -No Did you speak to anyone other than the patient for history (EMS, parent, family, police, friend...)? What history was obtained from this source @ -No Did you review nursing and triage notes (agree or disagree)? Why? @ -I reviewed and agree with nursing and triage notes Were old charts reviewed (outside hosp., previous admission, EMS record, old EKG, old radiological studies, urgent care reports/EKG's, skilled nursing records)? Report findings @ -No old charts were reviewed Differential Diagnosis (chest pain, altered mental status, abdominal pain women, abdominal pain men, vaginal bleeding, musculoskeletal, weakness, fever, dyspnea, syncope, headache, dizziness, GI bleed, back pain, seizure, CVA, palpatations, mental health)? @ -Differential Dyspnea: Coronary syndrome, arrhythmia, tamponade, asthma, COPD, pulmonary embolism, pneumonia, pneumothorax, pulmonary effusion, anaphylaxis, diabetic ketoacidosis, flailed chest, pulmonary contusion, diaphragmatic rupture, anemia, neuromu scular, this is not meant to be an all-inclusive list. EKG interpreted by me (3pts min.). @ -See above X-rays interpreted by me (1pt min.). @ -Chest x-ray is nonacute CT interpreted by me (1pt min.). @ -CT angiography shows no acute processes. No pulmonary embolism U/S interpreted by me (1pt. min.). @ -Ultrasound of the right lower extremity shows no DVT. There is a Garvin's cyst What testing was considered but not performed or refused? (CT, X-rays, U/S, labs)? Why? @ -None What meds were considered but not given or refused? Why? @ -None Was smoking cessation discussed for >3mins.? @ -No Were there social determinants of health that impacted care today? How? (Homelessness, low income, unemployed, alcoholism, drug addiction, transportation, low edu. Level, literacy, decrease access to med. care, half-way, rehab)? @ -No Was there de-escalation of care discussed even if they declined (Discuss DNR or withdrawal of care, Hospice)? DNR status @ -No What co-morbidities impacted this encounter? (DM, HTN, Smoking, COPD, CAD, Cancer, CVA, ARF, Chemo, Hep., AIDS, mental health diagnosis, sleep apnea, morbid obesity)? @ -None Was patient admitted / discharged? Hospital course, mention meds given and route, prescriptions, significant lab abnormalities, going to OR and other pertinent info. @ -64-year-old female brought to the emergency department for concerns of DVT and PE. Vital signs upon arrival are within acceptable limits. Labs imaging is unremarkable. Patient observed the emergency department for approximately 3 hours and 43 minutes reevaluated at bedside 1:16 PM found to be stable to condition. Patient is well-appearing and has no complaints. Patient discharged Did you discuss the management of the patient with other professionals (professionals i.e. , PA, CABLE INSTALLER REPAIRER HELPER, lab, RT, psych nurse, social worker aide, film producer, teacher, mounted police officer, watch caser)? Give summary @ -No Was critical care preformed (if so, how long)? @ -No Undiagnosed new problem with uncertain prognosis? @ -No Drug Therapy requiring intensive monitoring for toxicity (Heparin, Nitro, Insulin, Cardizem)? @ -No Were any procedures done? @ -No Diagnosis/symptom? Acute, or Chronic, or Acute on Chronic? Uncomplicated (without systemic symptoms) or Complicated (systemic symptoms)? @ -Dyspnea Side effects of treatment? @ -No Exacerbation, Progression, or Severe Exacerbation? @ -No Poses a threat to life or bodily function? How? (Chest pain, [place], [place], pneumonia, PE, COPD, DKA, ARF, appy, cholecystitis, CVA, Diverticulitis, Homicidal, Suicidal, threat to staff... and all critical care pts) @ -No - Lab Data Result diagrams: 11/22/24 10:01 11/22/24 10:01 Lab Results 11/22/24 11/22/24 11/22/24 Range/Units 10:01 10:01 10:01 WBC 7.08 (4.50-10.00) 10*3/uL RBC 4.61 (4.10-5.20) 10*6/uL Hgb 13.4 (12.0-15.0) g/dL Hct 40.2 (37.2-46.3) % MCV 87.2 (80.0-97.0) fL MCH 29.1 (27.0-32.0) pg MCHC 33.3 (32.0-37.0) g/dL Plt Count 282 (140-440) 10*3/uL MPV 10.0 (9.5-12.2) fL Immature Gran % (Auto) 0.1 % Neutrophils % 62.2 % Lymphocytes % 24.2 % Monocytes % 8.3 % Eosinophils % 3.8 % Basophils % 1.4 % Immature Gran # 0.01 (0.00-0.04) 10*3/uL Neutrophils # 4.40 (1.80-7.70) 10*3/uL Lymphocytes # 1.71 (0.90-5.00) 10*3/uL Monocytes # 0.59 (0.20-1.00) 10*3/uL Eosinophils # 0.27 (0.04-0.35) 10*3/uL Basophils # 0.10 (0.00-0.10) 10*3/uL PT 10.6 (10.0-12.5) sec INR 0.9 (<1.2) APTT 22.7 (22.0-30.0) sec D-Dimer 0.84 H (<0.60) mg/L FEU Sodium 140 (137-145) mmol/L Potassium 4.0 (3.5-5.1) mmol/L Chloride 107 (98-107) mmol/L Carbon Dioxide 26 (22-30) mmol/L Anion Gap 7 mmol/L BUN 21 H (7-17) mg/dL Creatinine 0.71 (0.52-1.04) mg/dL Est GFR (CKD-EPI)AfAm >90 (>60 ml/min/1.73 sqM) Est GFR (CKD-EPI)NonAf >90 (>60 ml/min/1.73 sqM) Glucose 94 (74-99) mg/dL Calcium 9.3 (8.4-10.2) mg/dL Total Bilirubin 0.6 (0.2-1.3) mg/dL AST 23 (14-36) U/L ALT 18 (4-34) U/L Alkaline Phosphatase 96 (38-126) U/L Troponin I (0.000-0.034) ng/mL NT-Pro-B Natriuret Pep 187 pg/mL Total Protein 6.5 (6.3-8.2) g/dL Albumin 4.2 (3.5-5.0) g/dL 11/22/24 Range/Units 10:01 WBC (4.50-10.00) 10*3/uL RBC (4.10-5.20) 10*6/uL Hgb (12.0-15.0) g/dL Hct (37.2-46.3) % MCV (80.0-97.0) fL MCH (27.0-32.0) pg MCHC (32.0-37.0) g/dL Plt Count (140-440) 10*3/uL MPV (9.5-12.2) fL Immature Gran % (Auto) % Neutrophils % % Lymphocytes % % Monocytes % % Eosinophils % % Basophils % % Immature Gran # (0.00-0.04) 10*3/uL Neutrophils # (1.80-7.70) 10*3/uL Lymphocytes # (0.90-5.00) 10*3/uL Monocytes # (0.20-1.00) 10*3/uL Eosinophils # (0.04-0.35) 10*3/uL Basophils # (0.00-0.10) 10*3/uL PT (10.0-12.5) sec INR (<1.2) APTT (22.0-30.0) sec D-Dimer (<0.60) mg/L FEU Sodium (137-145) mmol/L Potassium (3.5-5.1) mmol/L Chloride (98-107) mmol/L Carbon Dioxide (22-30) mmol/L Anion Gap mmol/L BUN (7-17) mg/dL Creatinine (0.52-1.04) mg/dL Est GFR (CKD-EPI)AfAm (>60 ml/min/1.73 sqM) Est GFR (CKD-EPI)NonAf (>60 ml/min/1.73 sqM) Glucose (74-99) mg/dL Calcium (8.4-10.2) mg/dL Total Bilirubin (0.2-1.3) mg/dL AST (14-36) U/L ALT (4-34) U/L Alkaline Phosphatase (38-126) U/L Troponin I <0.012 (0.000-0.034) ng/mL NT-Pro-B Natriuret Pep pg/mL Total Protein (6.3-8.2) g/dL Albumin (3.5-5.0) g/dL Disposition Clinical Impression: Dyspnea Disposition: HOME SELF-CARE Condition: Fair Instructions (If sedation given, give patient instructions): Chronic Cough (ED) Is patient prescribed a controlled substance at d/c from ED?: No Referrals: Jese Hair DO [Primary Care Provider] - 1-2 days Time of Disposition: 13:18
[2024-11-22 10:11] LABS: Basophils % (A) 1.4 %; Eosinophils # (A) 0.27 10*3/uL (0.04-0.35); Eosinophils % (A) 3.8 %; HCT 40.2 % (37.2-46.3); HGB 13.4 g/dL (12.0-15.0); Lymphocytes # (A) 1.71 10*3/uL (0.90-5.00); Lymphocytes % (A) 24.2 %; MCH 29.1 pg (27.0-32.0); MCHC 33.3 g/dL (32.0-37.0); MCV 87.2 fL (80.0-97.0); Monocytes # (A) 0.59 10*3/uL (0.20-1.00); Monocytes % (A) 8.3 %; Neutrophils % (A) 62.2 %; Platelet Count 282 10*3/uL (140-440); RBC 4.61 10*6/uL (4.10-5.20); RDW 13.3 % (11.5-14.5); WBC 7.08 10*3/uL (4.50-10.00)
--- NOTE | 2024-11-22 10:13 | XR ---
EXAMINATION TYPE: XR chest 2V DATE OF EXAM: 11/22/2024 10:08 AM COMPARISON: Chest radiographs from 11/23/2023. CLINICAL INDICATION: Female, 64 years old with history of COUGH; [facility] TECHNIQUE: XR chest 2V Frontal and lateral views of the chest. FINDINGS: Lungs/Pleura: There is no evidence of pleural effusion, focal consolidation, or pneumothorax. Pulmonary vascularity: Unremarkable. Heart/mediastinum: Cardiomediastinal silhouette is unremarkable. Musculoskeletal: No acute osseous pathology. IMPRESSION: No significant change from prior. No acute cardiopulmonary disease/process. [facility], , 11/22/2024 10:11 AM
[2024-11-22 10:25] LABS: ALT 18 U/L (4-34); AST 23 U/L (14-36); African American GFR (CKD) >90 (>60 ml/min/1.73 sqM); Albumin 4.2 g/dL (3.5-5.0); Alkaline Phosphatase 96 U/L (38-126); Anion Gap 7 mmol/L; Blood Urea Nitrogen 21 mg/dL (7-17); Calcium 9.3 mg/dL (8.4-10.2); Carbon Dioxide 26 mmol/L (22-30); Chloride 107 mmol/L (98-107); Glucose 94 mg/dL (74-99); Non-African American GFR(CKD) >90 (>60 ml/min/1.73 sqM); Sodium 140 mmol/L (137-145); Total Bilirubin 0.6 mg/dL (0.2-1.3); Total Protein 6.5 g/dL (6.3-8.2)
[2024-11-22 10:28] LABS: INR 0.9 (<1.2); Partial Thromboplastin Time 22.7 sec (22.0-30.0); Prothrombin Time 10.6 sec (10.0-12.5)
[2024-11-22 10:33] LABS: NT-Pro-B-Type Natriuretic Pept 187 pg/mL
--- NOTE | 2024-11-22 11:26 | CT ---
EXAMINATION TYPE: CT angio chest DATE OF EXAM: 11/22/2024 11:17 AM COMPARISON: None CLINICAL INDICATION: Female, 64 years old with history of positive D-dimer; shortness of breath. TECHNIQUE/CONTRAST: CTA scan of the thorax is performed with IV Contrast, patient injected with 100 mL of Isovue 370, MIP images are created and reviewed these are created on a separate workstation.. CT DLP: 376.1 mGycm, Automated exposure control for dose reduction was used. FINDINGS: Lungs/Pleura: No evidence of focal consolidation, pleural effusion or pneumothorax. Airway: Large airways are patent. Heart: Size within normal limits. No significant coronary artery calcifications. Vasculature: There is no evidence for a filling defect within the pulmonary vasculature to suggest ac [place] pulmonary embolism. The pulmonary artery is of normal size. Mediastinum: No gross evidence of adenopathy. Musculoskeletal: Moderate disc degeneration changes are present throughout the thoracolumbar spine se condary to osteophyte formation and facet joint arthropathy. Soft Tissues/lymph nodes: Unremarkable. Lower neck: No significant findings. Upper Abdomen: The gallbladder surgically absent. Likely physiologic dilation of the common duct alyssa uring 13 mm. IMPRESSION: 1. No evidence of pulmonary embolism. 2. Post cholecystectomy changes with physiologic dilation of the common duct. 3. No acute process. [facility], , 11/22/2024 11:23 AM
[2024-11-22 12:08] VITALS: TEMP 97.3
[2024-11-22] MEDS: GABAPENTIN 300 MG CAP PO STA (12:25)
--- NOTE | 2024-11-22 12:56 | US ---
EXAMINATION TYPE: US venous doppler duplex LE RT DATE OF EXAM: 11/22/2024 12:24 PM COMPARISON: 09/22/2021 CLINICAL INDICATION: Female, 64 years old with history of leg pain; Surgery in august, swelling on and off since, New onset pain and swelling x 10 days. , Pain TECHNIQUE: The lower extremity deep venous system is examined utilizing real time linear array sonog [place] with graded compression, color doppler sonography, and spectral doppler. SIDE PERFORMED: Right FINDINGS: VESSELS IMAGED: Common Femoral Vein Deep Femoral Vein Greater Saphenous Vein * Femoral Vein Popliteal Vein Small Saphenous Vein * Proximal Calf Veins (* superficial vessels) Right Leg: Negative for DVT, Color Doppler imaging shows patency of the vessels. Spectral waveforms are within normal limits. Heterogenous area within right popliteal fossa IMPRESSION: 1. No ultrasound evidence for deep venous thrombosis. 2. Right popliteal fossa possible Garvin's cyst. Consider MRI for further evaluation. [facility], , 11/22/2024 12:53 PM
[2024-11-22 13:35] VITALS: BP 149/85; PULSE 85; RESP 16
== END 2024-11-22 13:36 | disposition home or self-care (01) ==
LOC: EC 09:32
DX: R06.00 Dyspnea, unspecified (principal); Z87.891 Personal history of nicotine dependence; Z88.1 Allergy status to other antibiotic agents; Z91.013 Allergy to seafood; Z88.8 Allergy status to other drugs, medicaments and biological substances
CPT/HCPCS: 36415; 71046; 71275; 80053; 83880; 84484; 85025; 85379; 85610; 85730; 93005; 99285